=== PATIENT | female | born 1945 | race Caucasian/White ===

== ENCOUNTER 2020-03-17 16:03 | Outpatient (CLI) | payer MEDICARE, SELFPAY ==
[2020-03-17 16:19] LABS: Basophils Percent Auto 0.6 % (0.2-1.2); Eosinophils Percent Auto 0.6 % (0-4.4); Hematocrit 39.2 % (37.0-47.0); Hemoglobin 12.5 g/dL (12.0-15.0); Immature Granulocyte Absolute 0.01 K/mm3 (0.00-0.031); Immature Granulocyte Percent A 0.2 % (0-0.5); Lymphocytes Absolute Auto 0.97 K/mm3 (0.9-3.2); Lymphocytes Percent Auto 20.5 % (18.3-44.2); Mean Corpuscular HGB Conc 31.9 g/dl (32-36); Mean Corpuscular Hemoglobin 28.3 pg (26-34); Mean Corpuscular Volume 88.9 fl (80-100); Monocytes Absolute Auto 0.6 K/mm3 (0.1-0.6); Monocytes Percent Auto 12.7 % (2.6-8.5); Neutrophils Absolute Auto 3.1 K/mm3 (1.3-6.7); Neutrophils Percent Auto 65.4 % (45.5-73.1); Platelet Count Result 255 k/mm3 (150-375); Red Blood Count 4.41 M/mm3 (4.2-5.4); Red Cell Distribution Width 14.3 % (11.5-14.5); White Blood Count 4.7 K/mm3 (4.5-10.0)
[2020-03-17 16:56] LABS: Alanine Aminotransferase 6 U/L (4-35); Albumin Level 4.4 g/dL (3.5-5.1); Alkaline Phosphatase 67 U/L (38-126); Anion Gap 11 mmol/L (8-16); Aspartate Amino Transferase 22 U/L (14-36); Bilirubin,Total 0.4 mg/dL (0.2-1.3); Blood Urea Nitrogen 9 mg/dL (7-17); Calcium 9.7 mg/dL (8.4-10.2); Carbon Dioxide 31 mmol/L (22-30); Chloride 96 mmol/L (98-107); Estimated Glomerular Filt Rate > 60; Glucose 98 mg/dL (65-105); Potassium 3.8 mmol/L (3.4-5.0); Sodium 138 mmol/L (137-145)
== END 2020-03-17 16:04 | disposition home or self-care (01) ==
PROVIDERS: PCP Internal Medicine; Visit Provider Internal Medicine Hematology & Oncology
DX: C09.9 Malignant neoplasm of tonsil, unspecified (principal)
CPT/HCPCS: 36415; 80053; 85025

== ENCOUNTER 2020-03-24 10:38 | Outpatient (CLI) | payer MEDICARE, SELFPAY ==
--- NOTE | ~2020-03-24 | PE_ITS ---
EXAMINATION: PET skull to mid thigh DATE: 03/24/2020 13:37 INDICATION: Tonsillar cancer. TECHNIQUE: Blood glucose level was 85 mg/dL. 9.251 mCi of 18-fluorodeoxyglucose (18-FDG) was administ ered i.v. Low dose computed tomography (CT) images were acquired from the base of the brain to the pr oximal thighs for attenuation correction and anatomic localization. Automated exposure control was em ployed. Dose-length product (DLP) was 256 mGy-cm. Positron emission tomography (PET) images were acqu ired in the same distribution. COMPARISON: Chest CT 12/22/2018 FINDINGS: Head/neck: There is increased activity in the oral cavity without CT correlate, likely physiologic. T here are surgical clips in the neck. Chest: There is scarring at right lung apex without increased activity. There are worsened asymmetric airspace opacities at left lung apex with 2 areas of increased activity at the inferior aspect of th e airspace opacities. A calcified right lower lobe nodule and calcified right hilar lymph nodes are c onsistent with old granulomatous disease. There is a 13 mm nodule in right middle lobe with increased activity, increased from 6 mm on 12/22/18. There is an 11 mm nodule in left lower lobe without increas ed activity, worsened from 12/22/18. There is a 9 mm nodule in left lower lobe without increased activi ty, new from 12/22/18. No pleural effusion. The heart size is normal. There are coronary artery calcifi cations. No pericardial effusion. Abdomen/pelvis/proximal thighs: The liver, gallbladder, spleen, pancreas, and adrenal glands are norm al. There is a 4 mm stone in right kidney. There is a 2 mm stone in left kidney. There is a calcified fibroid in the uterus. There are no dilated loops of bowel. There are no pathologically enlarged lym ph nodes. There is no free intraperitoneal fluid. There is a dense sclerotic lesion in right ilium wi thout increased activity, likely a benign bone island. IMPRESSION: 1. Worsened 13 mm nodule in right lung middle lobe with increased activity, consistent with primary b ronchogenic carcinoma versus metastatic disease. 2. Worsened asymmetric airspace opacities at left lung apex with foci of increased activity, which ma y be inflammation, infection, or metastatic disease. 3. Worsened nodules in left lung lower lobe without increased activity, which may be benign, but low- grade neoplasm is not excluded. Reviewed, dictated and finalized at location B. IMPRESSION: 1. Worsened 13 mm nodule in right lung middle lobe with increased activity, con sistent with primary bronchogenic carcinoma versus metastatic disease. 2. Worsened asymmetric airspace opacities at left lung apex with foci of increa sed activity, which may be inflammation, infection, or metastatic disease. 3. Worsened nodules in left lung lower lobe without increased activity, which m ay be benign, but low-grade neoplasm is not excluded.
[2020-03-24 11:14] LABS: Glucose Point of Care 85 (65-105)
== END 2020-03-24 10:39 | disposition home or self-care (01) ==
PROVIDERS: PCP Internal Medicine; Visit Provider Internal Medicine Hematology & Oncology
DX: C09.9 Malignant neoplasm of tonsil, unspecified (principal)
CPT/HCPCS: 78815; A9552

== ENCOUNTER 2020-04-15 11:57 | Outpatient (CLI) | payer MEDICARE, SELFPAY ==
--- NOTE | 2020-04-15 | ECG_ITS ---
Measurements Intervals [place] Rate: 96 P: MD: 0 QRS: -37 QRSD: 86 T: 55 QT: 361 QTc: 458 Interpretive Statements WANDERING PACEMAKER ATRIAL PREMATURE COMPLEXES LEFT AXIS DEVIATION CANNOT RULE OUT SEPTAL INFARCT, AGE INDETERMINATE ABNORMAL ECG Electronically Signed On 04-15-2020 12:52:27 CDT by Gino Tracy D.O.
== END 2020-04-15 11:58 | disposition home or self-care (01) ==
LOC: ANHCARD 11:58
PROVIDERS: PCP Internal Medicine; Visit Provider Internal Medicine Hematology & Oncology
DX: I49.9 Cardiac arrhythmia, unspecified (principal); R94.31 Abnormal electrocardiogram [ECG] [EKG]
CPT/HCPCS: 93005

== ENCOUNTER 2020-04-27 02:30 | Inpatient (IN) | payer MEDICARE, SELFPAY ==
[2020-04-27] VITALS (19 sets, daily range): BP systolic 105–166; BP diastolic 56–91; PULSE 47–101; RESP 12–22; TEMP 36.4–37; O2SAT 94–100
--- NOTE | 2020-04-27 | ECG_ITS ---
Measurements Intervals [place] Rate: 78 P: 64 PA: 147 QRS: -35 QRSD: 87 T: 42 QT: 413 QTc: 472 Interpretive Statements SINUS RHYTHM ATRIAL PREMATURE COMPLEX LEFT AXIS DEVIATION DELAYED PRECORDIAL R/S TRANSITION BORDERLINE ECG Electronically Signed On 04-29-2020 13:44:16 BIZTALK DEVELOPER by Gino Tracy D.O.
--- NOTE | 2020-04-27 | ECHO_ITS ---
Patient Info Name: Macey Park Age: 74 years : 1945 Gender: Female Ht: 65 in Wt: 110 lbs BSA: 1.50 m2 HR: 80 bpm BP: 105 / 56 mmHg Heart Rhythm: Atrial Fibrillation Technical Quality: Good Exam Date: 04/27/2020 9:23 AM Exam Location: [facility] Patient Status: Inpatient Admit Date: 04/27/2020 Staff Ordering Physician: Kerwin Watson MD Superintendent Greens: Jose Martin Moreno RDCS Attending Provider: Kerwin Watson MD Referring Physician: Walter GOODMAN; Exam Type: CA echo doppler color flow Study Info Indications R55 - Syncope and collapse Complete two-dimensional, color flow and Doppler transthoracic echocardiogram is performed. History/Risk Factors Atrial fibrillation; syncope and collapse, hip fracture. Summary 1. Complete two-dimensional, color flow and Doppler transthoracic echocardiogram is performed. 2. Left ventricular chamber dimension is normal. 3. Left ventricular systolic function is normal, estimated at 55-60%. 4. Left atrial chamber dimension is normal. 5. Right atrial chamber dimension is normal. 6. The aortic valve is trileaflet. 7. There is no aortic valve stenosis. 8. The mitral valve has normal leaflets. 9. There is no mitral valve regurgitation. 10. Normal inferior vena cava with >50% collapse upon inspiration. 11. There is no pericardial effusion. Left Ventricle Left ventricular chamber dimension is normal. Left ventricular systolic function is normal, estimated at 55-60%. There is no increased left ventricular wall thickness. Left ventricular septal wall motion is normal. The left ventricular diastolic function is grade I diastolic dysfunction. Right Ventricle Right ventricular chamber dimension is normal. Right ventricular systolic function is normal. Left Atria Left atrial chamber dimension is normal. Right Atria Right atrial chamber dimension is normal. Aortic Valve The aortic valve is trileaflet. There is no aortic valve sclerosis. There is no aortic valve stenosis. There is no aortic valve regurgitation. Pulmonic Valve The pulmonic valve is normal. There is no pulmonic valve stenosis. There is no pulmonic regurgitation. Mitral Valve The mitral valve has normal leaflets. There is no mitral valve stenosis. There is no mitral valve regurgitation. Tricuspid Valve The tricuspid valve leaflets are normal. There is no significant tricuspid valve stenosis. There is no tricuspid valve regurgitation. Unable to assess pulmonary artery systolic pressure due to poor tricuspid regurgitation jet. . Pericardium/Pleural The pericardium appears normal. There is no pericardial effusion. Inferior Vena Cava Normal inferior vena cava with >50% collapse upon inspiration. Aorta The aortic root size at the sinus of Valsalva is normal. The prox ascending aorta size is normal. Left Ventricular Outflow Tract Name Value Normal LVOT 2D LVOT Diameter 2.0 cm LVOT Doppler LVOT Peak Gradient 4 mmHg LVOT Mean Gradient 2 mmHg LVOT VTI 18 c
--- NOTE | ~2020-04-27 | XR_ITS ---
EXAMINATION: XR chest 1V EXAM DATE: 04/27/2020 03:28 INDICATION: Initial encounter following injury, with pain of the right hip. Right hip fracture. TECHNIQUE: Portable AP frontal chest x-ray was obtained. There is no prior study for comparison. FINDINGS: The lungs are clear. There are no pleural effusions. The cardiomediastinal silhouette is within normal limits. There is no pneumothorax suspected. There are 2 left mid rib fractures, could be subacute or chronic but clinical correlation recommended. IMPRESSION: Left rib fractures most likely subacute or chronic. Reviewed, dictated and finalized at location A. PEELER
--- NOTE | ~2020-04-27 | CT_ITS ---
EXAMINATION: CT hip RT wo con DATE: 04/27/2020 08:12 INDICATION: Right hip pain. TECHNIQUE: Computed tomography (CT) of the right hip was performed without intravenous contrast. Auto mated exposure control and iterative reconstruction technique were employed. The dose-length product was 163.60 mGy-cm. COMPARISON: PET CT 03/24/2020, pelvis and right hip radiographs 04/27/2020, pelvis radiograph 9 FINDINGS: There is a 3 mm stone in right kidney. There is a calcified fibroid uterus. There are benig n bone islands in right ilium that were present on 11/11/2008. There is a subcapital fracture of right femoral neck. The distal fracture fragment demonstrates 25 degrees posterior angulation, impaction, and 25 degrees valgus angulation. There is mild right hip osteoarthritis. IMPRESSION: 1. Subcapital fracture of right femoral neck. 2. Mild right hip osteoarthritis. Reviewed, dictated and finalized at location B. HER
--- NOTE | ~2020-04-27 | XR_ITS ---
EXAMINATION: XR hip RT min 2V DATE: 04/27/2020 16:44 INDICATION: Right hip arthroplasty. Postop. TECHNIQUE: 2 views of right hip were obtained. COMPARISON: Pelvis and right hip radiographs 04/27/2020 FINDINGS: There is a bipolar right hip hemiarthroplasty in near-anatomic alignment. Right hip joint s pace is normal. There is a benign bone island in right ilium. There is gas in the soft tissues, consi stent with recent surgery. IMPRESSION: 1. Bipolar right hip hemiarthroplasty in near-anatomic alignment. Reviewed, dictated and finalized at location B. ICE WRITER
--- NOTE | ~2020-04-27 | XR_ITS ---
EXAMINATION: XR hip RT 2V w AP pelvis EXAM DATE: 04/27/2020 03:28 INDICATION: Initial encounter following injury, with pain of the right hip. TECHNIQUE: 2 right hip projections. Frontal projection pelvis. Comparison is made to prior examinati on from 2008. FINDINGS: Acute closed posttraumatic right hip transcervical femoral neck fracture without displaceme nt. Pelvic ring appears intact. Chronic sclerotic focus overlying right iliac crest again noted. The re is mild symmetric bilateral hip primary osteoarthritis. IMPRESSION: Acute right cervical femoral neck fracture. Reviewed, dictated and finalized at location A. ETEER
--- NOTE | ~2020-04-27 | XR_ITS ---
EXAMINATION: XR surgery orthopedic DATE: 04/27/2020 14:59 INDICATION: Intraoperative evaluation during bipolar type right hip hemiarthroplasty TECHNIQUE: Frontal view of the lower pelvis was obtained. COMPARISON: None. FINDINGS: Intraoperative image during a placement of a bipolar type right hip hemiarthroplasty. The previously fractured right femoral head and neck has been resected and there is been placement of a trial hemiar throplasty component. Alignment appears near-anatomic. No new fractures identified. Large bone island at the right ilium. Portions of the pelvis are obscured by a bolster. Likely Rivera catheter. IMPRESSION: 1. Expected appearance during right hip bipolar type hemiarthroplasty placement. Reviewed, dictated and finalized at location A. OL INSPECTOR IMPRESSION: 1. Expected appearance during right hip bipolar type hemiarthroplasty placement .
--- NOTE | ~2020-04-27 | CT_ITS ---
EXAMINATION: CT brain wo cox branson EXAM DATE: 04/27/2020 03:16 INDICATION: Dizziness, fall. TECHNIQUE: Spiral CT of the head was performed without contrast. Axial, coronal and sagittal images were reviewed. The dose-length product (DLP) for this examination was 756.67 mGy-cm. The exposure w as tailored according to patient size, and iterative reconstruction (ASIR) was used as additional dos e reduction technique. Comparison is made to prior examination from 05/29/2011. FINDINGS: There is no acute intraparenchymal hemorrhage. No evidence of intraparenchymal brain mass lesion. No evidence of acute infarction. Please note that initial head CT has limited sensitivity f or small or acute infarctions. There is mild periventricular and subcortical hypodensity, nonspecific but probably related to small vessel ischemic disease. There is mild prominence of the sulci and v entricles related to cerebral atrophy. There is intracranial carotid arteriosclerosis. There are n o extra-axial collections. There is no mass effect or midline shift. The orbits are unremarkable. Soft tissue is unremarkable. The visualized sinuses and mastoid air cells are well aerated. IMPRESSION: 1. No acute intracranial findings. 2. Chronic age related findings. Reviewed, dictated and finalized at location A. TRIC MOTOR ANALYST
--- NOTE | 2020-04-27 02:50 | PC.NURSE ---
Patient had episode of staring with eyes deviating to the right and snoring respirations-unable to get her to answer questions despite verbal/tactile stimulus. Dr Buck made aware. Episode lasted approx 2-3 min then patient once again speaking normally and aware of where she is. Patient was complaining of nausea just prior to episode
--- NOTE | 2020-04-27 02:57 | ED.GENADULT ---
HPI - General Adult General Chief complaint: Extremity Injury, Lower Stated complaint: R HIP PAIN Time Seen by Provider: 04/27/20 02:31 Source: patient and EMS Mode of arrival: EMS Limitations: no limitations History of Present Illness HPI narrative: THis patient is a 74 year old female with history of lung CA on chemo/radiation who presents for evaluation of right hip pain s/p fall. PAtient states tonight she became dizzy and she fell. SHe states her dizziness is due to an ear issue as this is a chronic issue. She denies hitting her head. She denies headache, dizziness, nausea or vomiting now. She complains of right hip pain that is worse with movement. Related Data Home Medications Medication Instructions Recorded Confirmed famotidine [Acid Classified Advertising Manager 10 mg PO DAILY 04/27/20 04/29/20 (famotidine)] loratadine [Allergy Relief 10 mg PO DAILY 04/27/20 04/27/20 (loratadine)] melatonin 10 mg PO HS PRN 04/27/20 04/27/20 Allergies Allergy/AdvReac Type Severity Reaction Status Date / Time Fish Containing Products Allergy Mild HIVES Verified 04/28/20 17:42 adhesive tape Allergy Unknown skin Verified 04/28/20 17:42 irritation Sulfa (Sulfonamide Allergy Unknown Hives Verified 04/28/20 17:42 Antibiotics) Review of Systems Review of Systems: All systems reviewed & are unremarkable except as noted in HPI and below Constitutional: Constitutional: Denies chills and Denies fever(s) Eyes: Eyes: Denies change in vision ENT: Reports dizziness Cardiovascular: Cardiovascular: Denies chest pain Respiratory: Respiratory: Denies cough and Denies dyspnea Gastrointestinal: Gastrointestinal: Denies abdominal pain, Reports nausea and Denies vomiting Musculoskeletal: Musculoskeletal: Reports arthralgias (right hip) [facility] Past Medical History Medical History (Updated 04/27/20 @ 12:00 by Pradeep Anguiano MD) Bigeminal rhythm Dyslipidemia Hypothyroidism (acquired) Malignant neoplasm of middle lobe, bronchus or lung Mixed action and resting tremor Pain in throat Personal history of nicotine dependence Pigmented skin lesion suspicious for malignant neoplasm Skin neoplasm malignant Syncope and collapse Surgical History Surgical History History of gastrostomy, has currently Family History Family History Father Family history of malignant neoplasm Sibling Family history of malignant neoplasm Social History Social History Smoking packs per day: 2 Smoking cigarettes per day: 40.0 Years smoked: 30 Smoking pack-years: 60.00 Smoking status: Former smoker Tobacco type: cigarettes Second hand tobacco smoke exposure: No Smoking end date: 07/01/13 Alcohol intake: never Substance use: never Gender identity (if verbalized by the patient): Female Spiritual care concerns: No Exam Const: General: no acute distress and alert Orientation/consciousness: patient oriented x3 HENMT: Head: normocephalic and atraumatic Ears: TM abnormal (left) perforated without discharge Face and sinus: face symmetric Throat: posterior oropharynx normal, tonsils normal and uvula midline Eyes: Pupils: Equal, round and reactive pupils present EOM: EOMs intact bilaterally Resp: Effort & Inspection: normal respiratory effort and no retractions Auscultation: clear to auscultation bilaterally Cardio: Rate: regular rate Rhythm: regular rhythm Heart sounds: no murmurs GI: GI Palp: Yes Soft to palpation, No Tenderness to palpation present (GI), No Guarding due to palpation present (GI) and No Rigid due to palpation Skin: General skin exam: normal color Rashes: no rashes Neuro: General: patient oriented x3 and moves all extremities Course Reevaluation(s) Reevaluation #1: Patient has been made aware of right hip fracture. Date: 04/27/20 Time
[2020-04-27 03:05] LABS: Basophils Percent Auto 0.2 % (0.2-1.2); Hematocrit 37.1 % (37.0-47.0); Hemoglobin 12.2 g/dL (12.0-15.0); Immature Granulocyte Absolute 0.02 K/mm3 (0.00-0.031); Immature Granulocyte Percent A 0.5 % (0-0.5); Lymphocytes Absolute Auto 0.29 K/mm3 (0.9-3.2); Lymphocytes Percent Auto 7.1 % (18.3-44.2); Mean Corpuscular HGB Conc 32.9 g/dl (32-36); Mean Corpuscular Hemoglobin 28.6 pg (26-34); Mean Corpuscular Volume 87.1 fl (80-100); Mean Platelet Volume 10.7 fl (7.4-10.4); Monocytes Absolute Auto 0.4 K/mm3 (0.1-0.6); Monocytes Percent Auto 9.6 % (2.6-8.5); Neutrophils Absolute Auto 3.4 K/mm3 (1.3-6.7); Neutrophils Percent Auto 82.6 % (45.5-73.1); Platelet Count Result 188 k/mm3 (150-375); Red Blood Count 4.26 M/mm3 (4.2-5.4); Red Cell Distribution Width 14.3 % (11.5-14.5); White Blood Count 4.1 K/mm3 (4.5-10.0)
[2020-04-27 03:15] LABS: INR 0.9; Prothrombin Time 12.5 Seconds (11.1-14.7)
[2020-04-27 03:16] LABS: Partial Thromboplastin Time 28.1 SECONDS (22.3-36.8)
[2020-04-27 03:21] LABS: Alanine Aminotransferase 10 U/L (4-35); Albumin Level 4.1 g/dL (3.5-5.1); Alkaline Phosphatase 62 U/L (38-126); Anion Gap 7 mmol/L (8-16); Aspartate Amino Transferase 34 U/L (14-36); Bilirubin,Total 0.3 mg/dL (0.2-1.3); Blood Urea Nitrogen 12 mg/dL (7-17); Carbon Dioxide 32 mmol/L (22-30); Chloride 92 mmol/L (98-107); Estimated CRCL calculation 56 ml/min; Estimated Glomerular Filt Rate > 60; Glucose 156 mg/dL (65-105); Potassium 3.3 mmol/L (3.4-5.0); Sodium 131 mmol/L (137-145)
[2020-04-27] MEDS: ONDANSETRON INJ 4 MG/2 ML VIAL IV PUSH ×2 (03:26→17:06)
--- NOTE | 2020-04-27 04:28 | PM.IMHP ---
H&P: HPI History of Present Illness Date/Time: 04/27/20 04:28 Chief complaint: closed right femoral neck fracture Narrative: This is a pleasant 74 year old female with known recurrent lung cancer who presented to the hospital today after suffering a syncopal event at home. The patient is known to have had throat cancer diagnosed in 2013 and underwent both surgery and radiation therapy for same. She is currently undergoing #5 radiation treatments at [facility] for right sided lung cancer. Yesterday she underwent her first radiation treatment. Last night the patient got dizzy after getting up and starting to walk towards the kitchen. She woke up on the floor and is not sure how long she was unconscious for. She isn't sure if she suffered any head trauma. She denies any shortness of breath or chest pain prior to passing out and her only symptoms was dizziness. The patient crawled to the phone and called EMS. On arrival to the hospital the patient was found to have a closed right hip fracture. Ortho was consulted by ER provider. She denies any other symptoms at this time although she does tell me that she saw her PCP last week and was found to be in an irregular heart rhythm although she can't tell me what that rhythm was. She denies any recent palpitations or chest pain. Review of Systems Review of Systems: All systems reviewed & are unremarkable except as noted in HPI and below PMFSH Past Medical History Medical History Dyslipidemia Pain in throat Pigmented skin lesion suspicious for malignant neoplasm Skin neoplasm malignant Surgical History Surgical History History of gastrostomy, has currently Family History Family History Father Family history of malignant neoplasm Sibling Family history of malignant neoplasm Social History Social History Smoking packs per day: 2 Smoking cigarettes per day: 40.0 Years smoked: 30 Smoking pack-years: 60.00 Smoking status: Former smoker Tobacco type: cigarettes Second hand tobacco smoke exposure: No Smoking end date: 07/01/13 Alcohol intake: never Substance use: never Gender identity (if verbalized by the patient): Female Sexual Orientation (if Verbalized by the Patient): Straight or Heterosexual Spiritual care concerns: No Meds Home Medications and Allergies Home Medications Medication Instructions Recorded Confirmed Type carbidopa ER 25 mg-levodopa 100 mg 1 tablet PO BID #180 tablet 12/23/19 04/08/20 Rx tablet,extended release atorvastatin 20 mg tablet 20 mg PO DAILY #90 tablet 03/16/20 04/08/20 Rx levothyroxine 50 mcg tablet 50 mcg PO DAILY #90 tablet 03/16/20 04/08/20 Rx gabapentin 100 mg capsule See Rx Instructions .ROUTE 04/18/20 Rx .COMPLEX #270 cap dexamethasone 4 mg PO DIRECTED #5 tablet 04/26/20 Rx Allergies Allergy/AdvReac Type Severity Reaction Status Date / Time Fish Containing Products Allergy Mild HIVES Verified 04/27/20 05:27 adhesive tape Allergy Unknown skin Verified 04/27/20 05:27 irritation Sulfa (Sulfonamide Allergy Unknown Hives Verified 04/27/20 05:27 Antibiotics) Vital Signs Vital Signs - 24 hr 04/27/20 02:27 04/27/20 03:29 Temperature 37.0 C Pulse Rate 101 H 82 Respiratory Rate 22 H 17 Blood Pressure 158/75 H 118/76 Pulse Oximetry 96 97 Exam Const: General: cooperative, alert and awake Nutritional Appearance: thin and underweight Orientation/consciousness: patient oriented x3 HENMT: Head: normal to inspection General nose exam: Normal external nose present Face and sinus: normal facial exam Mouth: Yes Normal oral and palatal mucosa present and Yes oropharynx normal Eyes: Pupils: Equal, round and reactive pupils present EOM: EOMs intact bilaterally Neck: Ne
--- NOTE | 2020-04-27 05:03 | ADMGEN ---
This patient, Macey Park, was admitted to [facility] Surg Room 303-01. Patient/family oriented to hospital policies and general routines including ID bracelet, bed and alarms, visiting hours, pain management, procedures, bathroom and other care routines, personal items, smoking policy, room service/diet, and visiting hours. Information on how to activate the Rapid Response Team has been discussed. Patient/Family are encouraged to report perceived risks to care and to ask questions if they do not understand what they are told or what they should do.
--- NOTE | 2020-04-27 05:27 | ECG_ITS ---
Measurements Intervals [place] Rate: 94 P: ME: 0 QRS: -32 QRSD: 95 T: 60 QT: 385 QTc: 483 Interpretive Statements SINUS RHYTHM SUPRAVENTRICULAR BIGEMINY LEFT AXIS DEVIATION INCOMPLETE RIGHT BUNDLE BRANCH BLOCK CANNOT RULE OUT SEPTAL INFARCT, AGE INDETERMINATE BASELINE ARTIFACT- I, III, AVL ABNORMAL ECG Electronically Signed On 04-27-2020 8:47:20 TWISTER HAND by Gino Tracy D.O.
[2020-04-27] MEDS: SODIUM CHLORIDE 0.9% IV 1,000 ML 125 ML IV CONT (05:52)
[2020-04-27 06:33] LABS: Magnesium 1.9 mg/dL (1.6-2.3)
[2020-04-27] MEDS: MORPHINE SULFATE (*CRX) 4 MG/ML INJ 2 MG IV PUSH (07:32)
[2020-04-27] MEDS: LEVOTHYROXINE SODIUM INJ 100 MCG/5 ML VIAL 25 MCG IV PUSH (08:46)
--- NOTE | 2020-04-27 08:56 | PM.CNCAR ---
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 She has bigeminal PACs on tele, Doubt that has contributed to syncope however will continue to monitor on tele for any bradyarrhythmia or heart block. Will also check 2D echocardiogram to rule out structural heart disease She sustained hip fracture from the syncope/fall. Will follow 2D echo. if that grossly normal then she should have acceptable risk for surgery if needed. (2) Bigeminal rhythm: Code(s): I49.8 - Other specified cardiac arrhythmias Status: Acute Assessment and Plan: as above. 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 Around 10 pm she got up from chair, felt dizzy and lost her consciousness. She is not sure how long she was down for. She managed to crawl and called for help. She felt febrile and clammy after she woke up. She was found to have hip fracture. Her EKG shows normal sinus rhythm with frequent PACs in bigeminy. She states that few weeks ago she was told she had irregular heart rhythm and had EKG done (noted on her records on 04/15, also showed sinus rhythm with bigeminal PACs She had on and off palpitations for years, that has not changed recently. She denies chest pain, dyspnea, nausea/vomiting. Never had any heart disease or cardiac work up in the past except for EKGs Her K is 3.3, otherwise labs are unremarkable. TSH was normal She quit smoking in 2013. She states it has been tough year, lost her and found to have recurrence of cancer Father on heart attack. Mother while asleep of unclear reason. Reason For Visit: closed right femoral neck fracture Review of Systems Review of Systems: All systems reviewed & are unremarkable except as noted in HPI and below Constitutional: Constitutional: Denies fatigue and Denies headache(s) Eyes: Eyes: Denies blurry vision ENT: Reports Normal hearing present and Denies headache(s) Cardiovascular: Cardiovascular: Denies chest pain, Denies diaphoresis, Denies pedal edema, Denies leg edema, Denies lightheadedness, Denies palpitations and Denies dyspnea Respiratory: Respiratory: Denies cough and Denies dyspnea Gastrointestinal: Gastrointestinal: Denies abdominal pain Musculoskeletal: Musculoskeletal: Denies back pain Neurologic: Reports Normal hearing present and Denies headache(s) Psychiatric: Psychiatric: Denies anxiety Endocrine: Endocrine: Denies fatigue and Denies palpitations [facility] Past Medical History Medical History (Updated 04/27/20 @ 10:22 by Lucy Womack MD) Dyslipidemia Pain in throat Pigmented skin lesion suspicious for malignant neoplasm Skin neoplasm malignant Surgical History Surgical History History of gastrostomy, has currently Family History Family History Father Family history of malignant neoplasm Sibling Family history of malignant neoplasm Social History Social History Smoking packs per day: 2 Smoking cigarettes per day: 40.0 Years smoked: 30 Smoking pack-years: 60.00 Smoking stat
[2020-04-27 11:33] LABS: Potassium 3.7 mmol/L (3.4-5.0)
--- NOTE | 2020-04-27 11:58 | WPDANESEPPF ---
Anes - Initial Pre Proc Eval Procedure: Operation Date: 04/27/20 13:30 Proposed Procedures p Right Bipolar Hip Replacement - Willam Castellanos MD cardiology consult: She has bigeminal PACs on tele, Doubt that has contributed to syncope however will continue to monitor on tele for any bradyarrhythmia or heart block. Will also check 2D echocardiogram to rule out structural heart disease She sustained hip fracture from the syncope/fall. Will follow 2D echo. if that grossly normal then she should have acceptable risk for surgery if needed. Date/Time: 04/27/20 11:58 Surgeon: Kerwin Watson MD Pre Op Diagnosis: closed right femoral neck fracture Patient Data Age: 74 Gender: F Height: 1.65 m Weight: 49.9 kg Last Vital Signs Temp 36.7 C 04/27/20 05:58 Pulse 81 04/27/20 08:00 Resp 16 04/27/20 05:58 BP 105/56 L 04/27/20 05:58 Pulse Ox 94 04/27/20 05:58 Allergies Allergy/AdvReac Type Severity Reaction Status Date / Time Fish Containing Products Allergy Mild HIVES Verified 04/27/20 05:27 adhesive tape Allergy Unknown skin Verified 04/27/20 05:27 irritation Sulfa (Sulfonamide Allergy Unknown Hives Verified 04/27/20 05:27 Antibiotics) Home Medications Medication Instructions Recorded Confirmed Type carbidopa ER 25 mg-levodopa 100 mg 1 tablet PO BID #180 tablet 12/23/19 04/27/20 Rx tablet,extended release atorvastatin 20 mg tablet 20 mg PO DAILY #90 tablet 03/16/20 04/27/20 Rx levothyroxine 50 mcg tablet 50 mcg PO DAILY #90 tablet 03/16/20 04/27/20 Rx gabapentin 100 mg capsule See Rx Instructions .ROUTE 04/18/20 04/27/20 Rx .COMPLEX #270 cap famotidine [Acid Code Official 10 mg PO DAILY 04/27/20 History (famotidine)] loratadine [Allergy Relief 10 mg PO DAILY 04/27/20 04/27/20 History (loratadine)] melatonin 10 mg PO HS PRN 04/27/20 04/27/20 History Laboratory Tests 04/27/20 04/27/20 04/27/20 02:48 02:48 02:48 WBC 4.1 K/mm3 L K/mm3 (4.5-10.0) RBC 4.26 M/mm3 M/mm3 (4.2-5.4) Hgb 12.2 g/dL g/dL (12.0-15.0) Hct 37.1 % % (37.0-47.0) MCV 87.1 fl fl (80-100) MCH 28.6 pg pg (26-34) MCHC 32.9 g/dl g/dl (32-36) RDW 14.3 % % (11.5-14.5) Plt Count 188 k/mm3 k/mm3 (150-375) MPV 10.7 fl H fl (7.4-10.4) Immature Gran % (Auto) 0.5 % % (0-0.5) Neut % (Auto) 82.6 % H % (45.5-73.1) Lymph % (Auto) 7.1 % L % (18.3-44.2) [place] % (Auto) 9.6 % H % (2.6-8.5) Eos % (Auto) 0.0 % % (0-4.4) Baso % (Auto) 0.2 % % (0.2-1.2) Lymph # (Auto) 0.29 K/mm3 L K/mm3 (0.9-3.2) [place] # (Auto) 0.4 K/mm3 K/mm3 (0.1-0.6) Eos # (Auto) 0.0 K/mm3 K/mm3 (0-0.3) Baso # (Auto) 0.0 K/mm3 K/mm3 (0.0-0.1) Abs Immat Gran (auto) 0.02 K/mm3 K/mm3 (0.00-0.031) Absolute Neuts (auto) 3.4 K/mm3 K/mm3 (1.3-6.7) Absolute Nucleated RBC 0.0 K/mm3 K/mm3 (0.0-0.012) Nucleated RBC % 0.0 % % (0.0-0.2) PT 12.5 Seconds Seconds (11.1-14.7) INR 0.9 APTT 28.1 SECONDS SECONDS (22.3-36.8) Sodium 131 mmol/L L mmol/L (137-145) Potassium 3.3 mmol/L L mmol/L (3.4-5.0) Chloride 92 mmol/L L mmol/L (98-107) Carbon Dioxide 32 mmol/L H mmol/L (22-30) Anion Gap 7 mmol/L L mmol/L (8-16) BUN 12 mg/dL mg/dL (7-17) Creatinine 0.60 mg/dL L mg/dL (0.7-1.0) Estim Creat Clear Calc 56 ml/min ml/min Estimated GFR > 60 (59 - ) Glucose 156 mg/dL H mg/dL (65-105) Calcium 9.0 mg/dL mg/dL (8.4-10.2) Magnesium Total Bilirubin 0.3 mg/dL mg/dL (0.2-1.3) AST 34 U/L U/L (14-36) ALT 10 U/L U/L (4-35) Alkaline Phosphatase 62 U/L U/L (38-126) Total Protein 7.0 g/dL g/dL (
--- NOTE | 2020-04-27 12:14 | PM.CNOR ---
Assessment and Plan Additional Plan Patient has a mildly impacted and comminuted right femoral neck fracture. Again this treatment option for this is a cemented bipolar hemiarthroplasty. This will allow be full weight-bearing immediately which should improve her recovery on a quicker basis. Surgical procedure as well as the risks complications were discussed. Certainly she is a little increased risk complications due to her malignant tumor in her lung. She will be anticoagulation for 6 weeks postop to increased risk of DVT because of the cancer. She has been evaluated cleared for surgery. Will plan proceeding today. <BERE Jerez - Last Filed: 04/27/20 12:25> History of Present Illness HPI Consult date: 04/27/20 <BERE Jerez - Last Filed: 04/27/20 12:25> 04/27/20 <Willam Castellanos MD - Last Filed: 04/27/20 16:18> Chief complaint: closed right femoral neck fracture <BERE Jerez - Last Filed: 04/27/20 12:25> [facility] Past Medical History Medical History: Medical History (Updated 04/27/20 @ 12:00 by Pradeep Anguiano MD) Bigeminal rhythm Dyslipidemia Hypothyroidism (acquired) Malignant neoplasm of middle lobe, bronchus or lung Mixed action and resting tremor Pain in throat Personal history of nicotine dependence Pigmented skin lesion suspicious for malignant neoplasm Skin neoplasm malignant Syncope and collapse <BERE Jerez - Last Filed: 04/27/20 12:25> Surgical History Surgical History: Surgical History History of gastrostomy, has currently <BERE Jerez - Last Filed: 04/27/20 12:25> Family History Family History: Family History Father Family history of malignant neoplasm Sibling Family history of malignant neoplasm <BERE Jerez - Last Filed: 04/27/20 12:25> Social History Social History: Social History Smoking packs per day: 2 Smoking cigarettes per day: 40.0 Years smoked: 30 Smoking pack-years: 60.00 Smoking status: Former smoker Tobacco type: cigarettes Second hand tobacco smoke exposure: No Smoking end date: 07/01/13 Alcohol intake: never Substance use: never Gender identity (if verbalized by the patient): Female Sexual Orientation (if Verbalized by the Patient): Straight or Heterosexual Spiritual care concerns: No <BERE Jerez - Last Filed: 04/27/20 12:25> Meds Home Medications and Allergies Home medications: Home Medications Medication Instructions Recorded Confirmed Type carbidopa ER 25 mg-levodopa 100 mg 1 tablet PO BID #180 tablet 12/23/19 04/27/20 Rx tablet,extended release atorvastatin 20 mg tablet 20 mg PO DAILY #90 tablet 03/16/20 04/27/20 Rx levothyroxine 50 mcg tablet 50 mcg PO DAILY #90 tablet 03/16/20 04/27/20 Rx gabapentin 100 mg capsule See Rx Instructions .ROUTE 04/18/20 04/27/20 Rx .COMPLEX #270 cap famotidine [Acid [employer] 10 mg PO DAILY 04/27/20 History (famotidine)] loratadine [Allergy Relief 10 mg PO DAILY 04/27/20 04/27/20 History (loratadine)] melatonin 10 mg PO HS PRN 04/27/20 04/27/20 History <BERE Jerez - Last Filed: 04/27/20 12:25> Allergies/Adverse reactions: Allergies Allergy/AdvReac Type Severity Reaction Status Date / Time Fish Containing Products Allergy Mild HIVES Verified 04/27/20 13:12 adhesive tape Allergy Unknown skin Verified 04/27/20 13:12 irritation Sulfa (Sulfonamide Allergy Unknown Hives Verified 04/27/20 13:12 Antibiotics) <BERE Jerez - Last Filed: 04/27/20 12:25> Vital Signs Vital Signs - 24 hr 04/27/20 02:27 04/27/20 03:29 04/27/20 05:58 Temperature 37.0 C 36.7 C Pulse Rate 101 H 82 82 Respiratory Rate 22 H 17 16 Blood Pressure 158/75 H 118/76 105/56 L Pulse Oximetry 96 97 94 04/27/20 08:00 Tempera
--- NOTE | 2020-04-27 12:35 | PM.PNCARD ---
Subjective Date/time seen: 04/27/20 12:35 Echo Was in our office today showed normal left ventricular systolic function, she has no cardiac contraindication for surgery, please call for any questions regarding her care Objective Data Vital Signs Vital Signs: Vital Signs - 24 hr 04/27/20 02:27 04/27/20 03:29 04/27/20 05:58 Temperature 37.0 C 36.7 C Pulse Rate 101 H 82 82 Respiratory Rate 22 H 17 16 Blood Pressure 158/75 H 118/76 105/56 L Pulse Oximetry 96 97 94 04/27/20 08:00 Temperature Pulse Rate 81 Respiratory Rate Blood Pressure Pulse Oximetry Intake/Output Intake/Output: Intake & Output 04/24/20 04/25/20 04/26/20 04/27/20 23:59 23:59 23:59 23:59 Intake Total 65 Balance 65 Meds/Results Medications: Active Medications Generic Name Dose Route Start Last Admin Trade Name Freq PRN Reason Stop Dose Admin Fentanyl Citrate 25 mcg 04/27/20 11:58 Fentanyl Citrate Inj (*Crx) 100 Mcg/2 Ml Vial IV PUSH Q2M PRN Pain Acetaminophen 650 mg in 65 mls @ 260 mls/hr 04/27/20 03:59 Ofirmev 650 Mg Ivpb IVPB 04/28/20 04:00 Q6H PRN Mild Pain (1-3) or Fever Sodium Chloride 1,000 mls @ 125 mls/hr 04/27/20 04:00 04/27/20 05:52 Normal Saline Iv IV CONT 125 mls/hr .Q8H EMILIE Administration Lactated Ringer's 1,000 mls @ 30 mls/hr 04/27/20 12:00 Lr - Lactated Ringers Iv IV CONT .Q24H EMILIE Lactated Ringer's 1,000 mls @ 30 mls/hr 04/27/20 12:00 Lr - Lactated Ringers Iv IV CONT .Q24H EMILIE Vancomycin HCl 750 mg in 250 mls @ 250 mls/hr 04/27/20 12:30 Vancomycin 750 Mg/D5w 250 Ml IVPB 04/27/20 13:29 ONCE ONE Levothyroxine Sodium 25 mcg 04/27/20 06:30 04/27/20 08:46 Levothyroxine Sodium Inj 100 Mcg/5 Ml Vial IV PUSH 25 mcg DAILY@0630 EMILIE Administration Morphine Sulfate 2 mg 04/27/20 03:59 04/27/20 07:32 Morphine Sulfate (*Crx) 4 Mg/Ml Inj IV PUSH 2 mg Q2H PRN Administration Pain Rated 7-10 Ondansetron HCl 4 mg 04/27/20 03:59 Ondansetron Inj 4 Mg/2 Ml Vial IV PUSH Q4H PRN Nausea Ondansetron HCl 4 mg 04/27/20 11:58 Ondansetron Inj 4 Mg/2 Ml Vial IV PUSH ONCE PRN Nausea Radiology Results: ITS Impressions Head CT 04/27/20 07:08 IMPRESSION: 1. No acute intracranial findings. 2. Chronic age related findings. Hip/Pelvis X-Ray 04/27/20 07:22 IMPRESSION: Acute right cervical femoral neck fracture. Chest X-Ray 04/27/20 07:25 IMPRESSION: Left rib fractures most likely subacute or chronic. Hip CT 04/27/20 08:13 IMPRESSION: 1. Subcapital fracture of right femoral neck. 2. Mild right hip osteoarthritis. Labs Labs: Laboratory Results - last 24 hr 04/27/20 04/27/20 04/27/20 02:48 02:48 02:48 WBC 4.1 L RBC 4.26 Hgb 12.2 Hct 37.1 MCV 87.1 MCH 28.6 MCHC 32.9 RDW 14.3 Plt Count 188 MPV 10.7 H Immature Gran % (Auto) 0.5 Neut % (Auto) 82.6 H Lymph % (Auto) 7.1 L Rains % (Auto) 9.6 H Eos % (Auto) 0.0 Baso % (Auto) 0.2 Lymph # (Auto) 0.29 L Rains # (Auto) 0.4 Eos # (Auto) 0.0 Baso # (Auto) 0.0 Abs Immat Gran (auto) 0.02 Absolute Neuts (auto) 3.4 Absolute Nucleated RBC 0.0 Nucleated RBC % 0.0 PT 12.5 INR 0.9 APTT 28.1 Sodium 131 L Potassium 3.3 L Chloride 92 L Carbon Dioxide 32 H Anion Gap 7 L BUN 12 Creatinine 0.60 L Estim Creat Clear Calc 56 Estimated GFR > 60 Glucose 156 H Calcium 9.0 Magnesium Total Bilirubin 0.3 AST 34 ALT 10 Alkaline Phosphatase 62 Total Protein 7.0 Albumin 4.1 TSH (Reflex) 04/27/20 04/27/20 04/27/20 05:42 05:42 11:09 WBC RBC Hgb Hct MCV MCH MCHC RDW Plt Count MPV Immature Gran % (Auto) Neut % (Auto) Lymph % (Auto) Rains % (Auto) Eos % (Auto) Baso % (Auto) Lymph # (Auto) Rains # (Auto) Eos
[2020-04-27] MEDS: LACTATED RINGERS 1,000 ML 30 ML IV CONT ×2 (13:02→16:28)
--- NOTE | 2020-04-27 13:26 | WPDHPUPDATE1 ---
History and Physical Update Update Date/Time: 04/27/20 13:26 History and Physical has been reviewed, including an updated exam of the patient. There are NO changes in the patient's condition. Risks, benefits, and alternatives have been discussed and questions answered. Patient agrees to proceed with procedure. Options and risks of surgery discused . Left ribs aree nontender. States occurred when blew nose hard in August.
[2020-04-27] MEDS: ceFAZolin 2 GM/D5W 50 ML 2 GM/50 ML BAG IVPB (13:41)
--- NOTE | 2020-04-27 14:05 | PM.IMPN ---
Progress Note: A&P Assessment and Plan (1) Closed fracture of neck of right femur: Qualifiers: Encounter type: initial encounter Qualified Code(s): S72.001A - Fracture of unspecified part of neck of right femur, initial encounter for closed fracture Code(s): S72.001A - Fracture of unspecified part of neck of right femur, initial encounter for closed fracture Status: Acute Assessment and Plan: admit to med-surg, NPO, urinary catheter, pain control as needed. Ortho has been consulted 04/27/20 14:05Patient is 74-year-old female with history of throat cancer and was treated in 1999 patient also has developed lung cancer and has been going through recent therapy at [facility], last night patient was walking to her kitchen and developed dizziness and patient felt dizzy and landed on the floor, not sure if she hit her head, not sure how long she was on the floor however patient was able to crawl and reach her and call EMS and patient was brought emergency department further evaluate, patient had a CT scan of the head which was negative for any acute injury to further evaluate patient had a CT of the head showed Subcapital fracture of right femoral neck. upon arrival patient tachycardia and was a concern the patient may been AFib, patient was seen by visual basic .net developer and suspect is started tachycardia and not in AFib, also the visual basic .net developer has cleared the patient for surgery, patient was seen by orthopedic surgeon and plan to surgical repair of the right hip later this afternoon. currently patient states feeling much better denies any chest pain shortness of breath palpitation fever or chills. (2) Syncope and collapse: Code(s): R55 - Syncope and collapse Status: Acute Assessment and Plan: likely reactive syncope. telemetry. IV fluids, TSH w reflex T4, Echocardiogram (3) Hypokalemia: Code(s): E87.6 - Hypokalemia Status: Acute Assessment and Plan: Jeniffer fuentes. Monitor serum potassium. (4) Malignant neoplasm of middle lobe, bronchus or lung: Code(s): C34.2 - Malignant neoplasm of middle lobe, bronchus or lung Status: Chronic Assessment and Plan: She received her first dose of radiation therapy yesterday. Continue Oncology recommendations. (5) Dyslipidemia: Code(s): E78.5 - Hyperlipidemia, unspecified Status: Chronic Assessment and Plan: resume atorvastatin when the patient is eating again. (6) Mixed action and resting tremor: Code(s): R25.9 - Unspecified abnormal involuntary movements Status: Chronic Assessment and Plan: Resume Sinemet when possible. (7) Hypothyroidism (acquired): Code(s): E03.9 - Hypothyroidism, unspecified Status: Chronic Assessment and Plan: IV levothyroxine ordered. Subjective Date/time seen: 04/27/20 14:05Patient is 74-year-old female with history of throat cancer and was treated in 1999 patient also has developed lung cancer and has been going through recent therapy at [facility], last night patient was walking to her kitchen and developed dizziness and patient felt dizzy and landed on the floor, not sure if she hit her head, not sure how long she was on the floor however patient was able to crawl and reach her and call EMS and patient was brought emergency department further evaluate, patient had a CT scan of the head which was negative for any acute injury to further evaluate patient had a CT of the head showed Subcapital fracture of right femoral neck. upon arrival patient tachycardia and was a concern the patient may been AFib, patient was seen by visual basic .net developer and suspect is started tachycardia and not in AFib, also the visual basic .net developer has cleared the patient for surgery, patient was seen by orthopedic surgeon and plan to surgical repair of the right hip later this afternoon. currently patient states feeling much better denies any chest pain shortness of breath palpitation fever
[2020-04-27] MEDS: TRANEXAMIC ACID 1,000MG/ISO100 1,000 MG/100 ML BAG 200 MG IVPB (14:06)
[2020-04-27] MEDS: GENTAMICIN BONE CEMENT REFOBACIN 1 EACH TOPICAL (14:17)
[2020-04-27] MEDS: KETOROLAC 30 MG/ML VIAL (*BKC) IV PUSH (15:42)
[2020-04-27] MEDS: ceFAZolin SODIUM 1 GM VIAL IV PUSH (15:42)
--- NOTE | 2020-04-27 15:59 | SUR.OPER ---
knee high teds sent with patient to place after induction due to discomfort. Not to apply as per Dr Castellanos prior to surgery to leave off.
--- NOTE | 2020-04-27 16:11 | PM.PROC ---
Procedure Note - Detailed Date of procedure: 04/27/20 Pre-op diagnosis: closed right femoral neck fracture Post-op diagnosis: same Procedure performed: Cemented bipolar hemiarthroplasty right hip Description of procedure: Patient brought to the operating room and general anesthesia was administered. She had her right hip area scrubbed with a chlorhexidine cloth. She was transferred to the operating table in placed in lateral decubitus position the right hip prepped draped usual fashion. Anesthesia position the arm and a bump was placed under the axilla. She received 2 g of Ancef weight based vancomycin preoperatively and 1 g of tranexamic acid. A 6 in longitudinal incision was made centered over the greater trochanter and the fascia dragan was incised longitudinally. The anterior 40% of the gluteus medius and gluteus minimus were elevated off the greater trochanter. Capsule was incised superiorly. The labrum was preserved. Capsule released off the anterior femur and provisional femoral neck osteotomy was performed. The femoral head was removed. It measures 45 point 3 mm. The 46 mm trial fit nicely. The femur was broached up to a size 10 reduced profile broach. We trialed with the minus 6 which was tight. We countersunk 4 mm calcar planed and trialed with a -3 which was tight. We countersunk another 4 mm and calcar planed and took an intraoperative x-ray with the -[address] that had nice stability and excellent range of motion and normal amount of soft tissue tension on Shuck. The x-rays showed that we had matched our preoperative plan. A cement restrictor was placed in the canal. The proximal femur was thoroughly irrigated with the bottle brush and treated with an epinephrine-soaked sponge and dried and we cemented the size 7 Biomet cemented stem with 10 mm centralizer using 2 batches of Biomet cement 1 containing the gentamicin powder. Cement was lightly pressurized and the stem inserted without difficulty. Cement was allowed to harden excess cement was removed we trialed with a -3 and this was again appropriate. The -3 was assembled onto the 46 mm bipolar head and the assembly impacted onto the clean and dried trunnion and the hip again irrigated with antibiotic solution reduced range of motion and stability reconfirmed. Capsule was repaired with 2. Ethibond the abductor was reattached with 5. Ethibond and 2. Ethibond through bone. The fascia dragan closed with interrupted 2. Vicryl as and 1. You directional pati running strata Fix sutures skin closed in layers with 2 O subcutaneous Vicryl and glue EBL was turned cc. Third g Ancef given at time of wound closure. Local anesthetic cocktail was injected at time of closure as well. There were no occult known complications. At time of surgery of found the cancellous bone to be extremely osteoporotic. Much of the intramedullary metaphyseal preparation of the proximal femur was carried out using a plastic suction tip as the bone was that soft. Anesthesia: GETA Surgeon: Willam Castellanos MD Heel Nail Rasper: Ellie Estimated blood loss (mL): 200 Drains: No Packing: No Pathology: yes (The femoral head and the neck cut were sent to pathology. History of metastatic tonsillar squamous carcinoma) Complications: No immediate complications Condition: stable Disposition: PACU
--- NOTE | 2020-04-27 16:58 | SUR.PHASEI ---
02 removed at 1655.
[2020-04-27] MEDS: diphenhydrAMINE HCl INJ 50 MG/ML VIAL 12.5 MG IV PUSH (17:23)
[2020-04-27] MEDS: SODIUM CHLORIDE 0.9% IV 1,000 ML 80 ML IV CONT (18:53)
[2020-04-28] VITALS (8 sets, daily range): BP systolic 123–144; BP diastolic 69–77; PULSE 62–106; RESP 16; TEMP 36.1–36.7; O2SAT 96–100; BMI 18.3
[2020-04-28 06:23] LABS: Hematocrit 31.7 % (37.0-47.0); Hemoglobin 10.6 g/dL (12.0-15.0); Immature Granulocyte Absolute 0.01 K/mm3 (0.00-0.031); Immature Granulocyte Percent A 0.2 % (0-0.5); Lymphocytes Percent Auto 8.5 % (18.3-44.2); Mean Corpuscular HGB Conc 33.4 g/dl (32-36); Mean Corpuscular Volume 86.6 fl (80-100); Mean Platelet Volume 11.3 fl (7.4-10.4); Monocytes Absolute Auto 0.4 K/mm3 (0.1-0.6); Monocytes Percent Auto 8.7 % (2.6-8.5); Neutrophils Absolute Auto 3.9 K/mm3 (1.3-6.7); Neutrophils Percent Auto 82.6 % (45.5-73.1); Platelet Count Result 162 k/mm3 (150-375); Red Blood Count 3.66 M/mm3 (4.2-5.4); Red Cell Distribution Width 14.2 % (11.5-14.5); White Blood Count 4.7 K/mm3 (4.5-10.0)
[2020-04-28] MEDS: LEVOTHYROXINE SODIUM INJ 100 MCG/5 ML VIAL 25 MCG IV PUSH (06:31)
[2020-04-28 06:39] LABS: Anion Gap 4 mmol/L (8-16); Blood Urea Nitrogen 7 mg/dL (7-17); Calcium 8.2 mg/dL (8.4-10.2); Carbon Dioxide 28 mmol/L (22-30); Chloride 100 mmol/L (98-107); Estimated CRCL calculation 66 ml/min; Estimated Glomerular Filt Rate > 60; Glucose 119 mg/dL (65-105); Potassium 3.6 mmol/L (3.4-5.0); Sodium 132 mmol/L (137-145)
[2020-04-28] MEDS: ONDANSETRON INJ 4 MG/2 ML VIAL IV PUSH (06:54)
--- NOTE | 2020-04-28 07:20 | PM.PNORT ---
Progress Note: A&P Additional Plan Patient is postoperative day 1 following cemented right bipolar hemiarthroplasty for femoral neck fracture. He is afebrile with stable vital signs. Her oxygen saturation has been 98-100%. Her hemoglobin is 10.6 indicating mild acute blood loss anemia. Her sodium is still mildly low at 132. She is received normal saline as IV fluids overnight. Her creatinine is normal at 0.5 and actually below normal. Creatinine clearance 66 mL. We will check a 25 hydroxy vitamin D tomorrow. On exam this morning she is sitting up she is alert and oriented. She states she feels a little bit achy all over but has no pain. She was up to the chair last night and had nausea after sitting for 30-40 minutes. She does have some problems with nausea following anesthesia she states. This morning she feels a little bit nauseated she is alert and oriented and cheerful overall. She has no leg swelling. She does have neuropathy and there is no change in that she wiggles her toes and ankles up and down without difficulty. There is no swelling in the leg or hip. Eliquis will be started this morning for DVT prophylaxis and we anticipate 6 weeks on that. She is weight-bearing as tolerated with a walker she will be mobilized more today with physical therapy. She lives by herself at home prior to her hip fracture and walked without gait aid so I think that we may be able to have her discharged to home from here with a walker, if she feels strong enough. Will see how she does today. Subjective Subjective Date/Time Seen: 04/28/20 07:20 Objective Data Vital Signs Vital Signs: Vital Signs - 24 hr 04/27/20 08:00 04/27/20 12:00 04/27/20 12:28 Temperature 36.8 C Pulse Rate 81 94 47 L Respiratory Rate 20 Blood Pressure 166/75 H Pulse Oximetry 100 04/27/20 16:28 04/27/20 16:45 04/27/20 17:00 Temperature Pulse Rate 83 76 75 Respiratory Rate 17 14 14 Blood Pressure 148/80 H 153/91 H 138/90 Pulse Oximetry 100 94 95 04/27/20 17:15 04/27/20 17:30 04/27/20 17:45 Temperature Pulse Rate 81 75 78 Respiratory Rate 12 12 14 Blood Pressure 139/88 148/78 H 150/77 H Pulse Oximetry 95 98 99 11/11/20 18:00 04/27/20 18:15 04/27/20 18:45 Temperature 36.4 C L 36.4 C L 36.4 C L Pulse Rate 86 85 85 Respiratory Rate 18 18 18 Blood Pressure 145/82 H 148/76 H 133/74 Pulse Oximetry 100 100 100 04/27/20 19:37 04/27/20 20:14 04/27/20 22:00 Temperature 36.4 C L 36.4 C Pulse Rate 89 79 Respiratory Rate 16 16 Blood Pressure 122/70 119/70 Pulse Oximetry 100 99 100 04/28/20 06:00 Temperature 36.1 C L Pulse Rate 79 Respiratory Rate 16 Blood Pressure 123/77 Pulse Oximetry 100 Intake/Output Intake/Output: Intake & Output 04/25/20 04/26/20 04/27/20 04/28/20 23:59 23:59 23:59 23:59 Intake Total 1470 545 Output Total 1240 1200 Balance 230 -655 Meds/Results Medications: Active Medications Generic Name Dose Route Start Last Admin Trade Name Freq PRN Reason Stop Dose Admin Apixaban 2.5 mg 04/28/20 09:00 Apixaban 2.5 Mg Tablet PO 06/08/20 21:01 Q12HR EMILIE Acetaminophen 650 mg in 65 mls @ 260 mls/hr 04/27/20 18:00 04/28/20 06:29 Ofirmev 650 Mg Ivpb IVPB 04/29/20 12:14 260 mls/hr Q6HR EMILIE Administration Cefazolin Sodium 1 gm in 50 mls @ 100 mls/hr 04/27/20 22:00 04/28/20 06:58 Ancef 1 Gm/D5w 50 Ml Pm IVPB 04/28/20 14:29 100 mls/hr Q8H EMILIE Administration Vancomycin HCl 1,000 mg in 250 mls @ 250 mls/hr 04/28/20 02:00 04/28/20 02:36 Vancomycin 1,000 Mg/D5w 250 Ml IVPB 04/28/20 14:59 250 mls/hr Q12H EMILIE Administration Sodium Chloride 1,000 mls @ 80 mls/hr 04/27/20 17:52 04/27/20 18:53 Normal Saline Iv IV CONT 80 mls/hr .[id number] EMILIE Administration Levothyroxine Sodium 25 mcg 04/27/20 06:30 04/28/20 06:31 Levothyroxine Sodium Inj 100 Mcg/5 Ml Vial IV PUSH 25 mcg DAILY@0630 EMILIE Administration Morphine Sulfate 2 mg 04/27/20 03:59
[2020-04-28] MEDS: SENNA/DOCUSATE SODIUM TABLET 2 TAB PO (08:32)
[2020-04-28] MEDS: APIXABAN 2.5 MG TABLET PO ×2 (08:32→21:02)
[2020-04-28] MEDS: polyethylene glycoL 3350 17 GM POWD.PACK PO (08:35)
[2020-04-28 08:47] LABS: Add Urine Microscopic? YES; Appearance Urine Clear (Clear); Bilirubin Urine Negative (Negative); Blood Urine 1+ (Negative); Color Urine Straw (Yellow); Glucose Urine UA Negative (Negative); Ketones Urine Negative (Negative); Leukocyte Esterase Ur Negative LEU/UL (Negative); Nitrate Urine Negative (Negative); Protein Urine Negative (Negative); Specific Grav Ur 1.011 (1.001-1.035); Urobilinogen Urine Negative mg/dL (<2.0); WBC Urine 0-3 /hpf
--- NOTE | 2020-04-28 09:14 | WPDANESPN ---
Anes - Prog Note Post-Op Date/Time: 04/28/20 09:14 Cardiovascular status: normal Respiratory status: normal Airway patency: baseline Mental status: baseline Post-Op hydration status: normal Vital Signs: Last Vital Signs Temp 36.1 C L 04/28/20 06:00 Pulse 79 04/28/20 06:00 Resp 16 04/28/20 06:00 BP 123/77 04/28/20 06:00 Pulse Ox 100 04/28/20 06:00 Pain Score (VAS): 0 I/O: Intake & Output 04/27/20 04/28/20 04/28/20 23:59 07:59 15:59 Intake Total 1405 910 Output Total 1240 1200 Balance 165 -290 Laboratory Tests 04/28/20 05:45 04/28/20 05:45 04/27/20 04/27/20 04/28/20 11:09 12:43 05:45 WBC 4.7 RBC 3.66 L Hgb 10.6 L Hct 31.7 L MCV 86.6 MCH 29.0 MCHC 33.4 RDW 14.2 Plt Count 162 MPV 11.3 H Immature Gran % (Auto) 0.2 Neut % (Auto) 82.6 H Lymph % (Auto) 8.5 L [place] % (Auto) 8.7 H Eos % (Auto) 0.0 Baso % (Auto) 0.0 L Lymph # (Auto) 0.40 L [place] # (Auto) 0.4 Eos # (Auto) 0.0 Baso # (Auto) 0.0 Abs Immat Gran (auto) 0.01 Absolute Neuts (auto) 3.9 Absolute Nucleated RBC 0.0 Nucleated RBC % 0.0 Sodium Potassium 3.7 Chloride Carbon Dioxide Anion Gap BUN Creatinine Estim Creat Clear Calc Estimated GFR Glucose Calcium Urine Color Urine Appearance Urine pH Ur Specific [place] Urine Protein Urine Glucose (UA) Urine Ketones Ur Blood (Man) Urine Nitrate Urine Bilirubin Urine Urobilinogen Leukocyte Esterase Rfl Urine RBC Urine WBC Blood Type A Positive Antibody Screen Positive Antibody Identification Anti-Chau A Antigen Identification Chau A Antigen - NEGATIVE DEEPALI, IgG Interpret Not Performed DEEPALI, Poly Interpret Negative DEEPALI, Complement Interp Not Performed 04/28/20 04/28/20 05:45 08:25 WBC RBC Hgb Hct MCV MCH MCHC RDW Plt Count MPV Immature Gran % (Auto) Neut % (Auto) Lymph % (Auto) [place] % (Auto) Eos % (Auto) Baso % (Auto) Lymph # (Auto) [place] # (Auto) Eos # (Auto) Baso # (Auto) Abs Immat Gran (auto) Absolute Neuts (auto) Absolute Nucleated RBC Nucleated RBC % Sodium 132 L Potassium 3.6 Chloride 100 Carbon Dioxide 28 Anion Gap 4 L BUN 7 D Creatinine 0.50 L Estim Creat Clear Calc 66 Estimated GFR > 60 Glucose 119 H Calcium 8.2 L Urine Color Straw Urine Appearance Clear Urine pH 6.0 Ur Specific [place] 1.011 Urine Protein Negative Urine Glucose (UA) Negative Urine Ketones Negative Ur Blood (Man) 1+ H Urine Nitrate Negative Urine Bilirubin Negative Urine Urobilinogen Negative Leukocyte Esterase Rfl Negative Urine RBC 3-5 H Urine WBC 0-3 Blood Type Antibody Screen Antibody Identification Antigen Identification DEEPALI, IgG Interpret DEEPALI, Poly Interpret DEEPALI, Complement Interp Post-procedural complaints: nausea Patient Feedback: Patient satisfied with anesthetic care.
--- NOTE | 2020-04-28 09:37 | PM.PNCARD ---
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 She has bigeminal PACs on tele, Doubt that has contributed to syncope however will continue to monitor on tele for any bradyarrhythmia or heart block. She sustained hip fracture from the syncope/fall. She should have acceptable risk for surgery and she underwent right hip hemiarthroplasty on 04/27/2020.. She had echo 04/28/20: 1. Complete two-dimensional, color flow and Doppler transthoracic echocardiogram is performed. 2. Left ventricular chamber dimension is normal. 3. Left ventricular systolic function is normal, estimated at 55-60%. 4. Left atrial chamber dimension is normal. 5. Right atrial chamber dimension is normal. Patient appears stable for discharge or transfer to rehab from a cardiac perspective with follow-up in the Cardiology Clinic in 1 week. (2) Bigeminal rhythm: Code(s): I49.8 - Other specified cardiac arrhythmias Status: Acute Assessment and Plan: as above, with frequent APDs in a bigeminal pattern. Replaced K and continue to monitor. Had normal magnesium level. TSH within normal limits (3) Malignant neoplasm of middle lobe, bronchus or lung: Code(s): C34.2 - Malignant neoplasm of middle lobe, bronchus or lung Status: Chronic Assessment and Plan: Management as per primary service and Oncology. She has also lost her spouse recently. She is tearful today. Subjective Date/time seen: 04/28/20 09:37 Patient denies chest pain or dyspnea. She reports occasional postural dizziness now that she is becoming slightly more active. She is tearful at present with the loss of her spouse and with her recent medical diagnoses. Patient was seen and examined, chart reviewed, and case discussed with nurse. Review of Systems Review of Systems: All systems reviewed & are unremarkable except as noted in HPI and below Constitutional: Constitutional: Denies fatigue and Denies headache(s) Eyes: Eyes: Denies blurry vision ENT: Reports Normal hearing present and Denies headache(s) Cardiovascular: Cardiovascular: Denies chest pain, Denies diaphoresis, Denies pedal edema, Denies leg edema, Denies lightheadedness, Denies palpitations and Denies dyspnea Respiratory: Respiratory: Denies cough and Denies dyspnea Gastrointestinal: Gastrointestinal: Denies abdominal pain Musculoskeletal: Musculoskeletal: Denies back pain Neurologic: Reports Normal hearing present and Denies headache(s) Psychiatric: Psychiatric: Denies anxiety Endocrine: Endocrine: Denies fatigue and Denies palpitations Exam Narrative: Exam Narrative: Appears frail but in acute distress. Const: General: no acute distress Eyes: Sclera: sclerae normal Neck: Neck: no JVD Carotids: no bruits Resp: Effort & Inspection: normal respiratory effort Auscultation: clear to auscultation bilaterally Cardio: Rate: regular rate (regularily irregular. ) and not tachycardic Rhythm: regular rhythm Heart sounds: no gallops, no murmurs and no rubs Skin: General skin exam: normal color Neuro: Cranial nerves: Yes Normal hearing present Speech: normal speech Extrem: General: normal to inspection and no edema Psych: Affect: normal affect Objective Data Vital Signs Vital Signs: Vital Signs - 24 hr 04/27/20 12:00 04/27/20 12:28 04/27/20 16:28 Temperature 36.8 C Pulse Rate 94 47 L 83 Respiratory Rate 20 17 Blood Pressure 166/75 H 148/80 H Pulse Oximetry 100 100 04/27/20 16:45 04/27/20 17:00 04/27/20 17:15 Temperature Pulse Rate 76 75 81 Respiratory Rate 14 14 12 Blood Pressure 153/91 H 138/90 139/88 Pulse O
[2020-04-28] MEDS: POTASSIUM CHLORIDE 20 MEQ TABLET 40 MEQ PO (09:45)
[2020-04-28] MEDS: oxyCODONE HCL (*CRX) 2.5 MG TAB IR PO ×2 (09:51→18:50)
--- NOTE | 2020-04-28 10:21 | PCOTNOTE ---
On 04/28/20, the student, Candida Lugo, provided care and completed [facility] on [facility]. I have reviewed the student's documentation and agree with the findings.
--- NOTE | 2020-04-28 13:24 | PM.IMPN ---
Progress Note: A&P Assessment and Plan (1) Closed fracture of neck of right femur: Qualifiers: Encounter type: initial encounter Qualified Code(s): S72.001A - Fracture of unspecified part of neck of right femur, initial encounter for closed fracture Code(s): S72.001A - Fracture of unspecified part of neck of right femur, initial encounter for closed fracture Status: Acute Assessment and Plan: 04/28/20 13:24 admit to med-surg, NPO, urinary catheter, pain control as needed. Ortho has been consulted 04/27/20 14:05Patient is 74-year-old female with history of throat cancer and was treated in 1999 patient also has developed lung cancer and has been going through recent therapy at [facility], last night patient was walking to her kitchen and developed dizziness and patient felt dizzy and landed on the floor, not sure if she hit her head, not sure how long she was on the floor however patient was able to crawl and reach her and call EMS and patient was brought emergency department further evaluate, patient had a CT scan of the head which was negative for any acute injury to further evaluate patient had a CT of the head showed Subcapital fracture of right femoral neck. upon arrival patient tachycardia and was a concern the patient may been AFib, patient was seen by key carrier and suspect is started tachycardia and not in AFib, also the key carrier has cleared the patient for surgery, patient was seen by orthopedic surgeon and plan to surgical repair of the right hip later this afternoon. currently patient states feeling much better denies any chest pain shortness of breath palpitation fever or chills. today patient is sitting in the chair, had a surgical repair of her right hip on 04/27, patient was seen by her surgeon today and doing well, patient states the pain in the right hip is present but was able to do PT this morning, patient was seen by Cardiology denies any chest pain shortness of breath or dizziness, patient is clinically stable will continue to monitor, will follow the recommendation from her surgeon. (2) Syncope and collapse: Code(s): R55 - Syncope and collapse Status: Acute Assessment and Plan: likely reactive syncope. telemetry. IV fluids, TSH w reflex T4, Echocardiogram (3) Hypokalemia: Code(s): E87.6 - Hypokalemia Status: Acute Assessment and Plan: Jeniffer fuentes. Monitor serum potassium. (4) Malignant neoplasm of middle lobe, bronchus or lung: Code(s): C34.2 - Malignant neoplasm of middle lobe, bronchus or lung Status: Chronic Assessment and Plan: She received her first dose of radiation therapy yesterday. Continue Oncology recommendations. (5) Dyslipidemia: Code(s): E78.5 - Hyperlipidemia, unspecified Status: Chronic Assessment and Plan: resume atorvastatin when the patient is eating again. (6) Mixed action and resting tremor: Code(s): R25.9 - Unspecified abnormal involuntary movements Status: Chronic Assessment and Plan: Resume Sinemet when possible. (7) Hypothyroidism (acquired): Code(s): E03.9 - Hypothyroidism, unspecified Status: Chronic Assessment and Plan: IV levothyroxine ordered. Subjective Date/time seen: 04/28/20 13:24 admit to med-surg, NPO, urinary catheter, pain control as needed. Ortho has been consulted 04/27/20 14:05Patient is 74-year-old female with history of throat cancer and was treated in 1999 patient also has developed lung cancer and has been going through recent therapy at [facility], last night patient was walking to her kitchen and developed dizziness and patient felt dizzy and landed on the floor, not sure if she hit her head, not sure how long she was on the floor however patient was able to crawl and reach her and call EMS and patient was brought emergency department further evaluate, patient had a CT scan of the head which was negative for a
[2020-04-29] VITALS: PULSE 68
[2020-04-29 04:00] VITALS: PULSE 62
[2020-04-29 06:32] LABS: Hematocrit 35.6 % (37.0-47.0); Hemoglobin 11.6 g/dL (12.0-15.0); Mean Corpuscular HGB Conc 32.6 g/dl (32-36); Mean Corpuscular Hemoglobin 28.6 pg (26-34); Mean Corpuscular Volume 87.9 fl (80-100); Mean Platelet Volume 11.2 fl (7.4-10.4); Platelet Count Result 162 k/mm3 (150-375); Red Blood Count 4.05 M/mm3 (4.2-5.4); Red Cell Distribution Width 14.3 % (11.5-14.5); White Blood Count 4.8 K/mm3 (4.5-10.0)
[2020-04-29] MEDS: LEVOTHYROXINE SODIUM INJ 100 MCG/5 ML VIAL 25 MCG IV PUSH (06:38)
[2020-04-29 07:21] LABS: Vitamin D 25 Hydroxy 25.2 ng/mL
[2020-04-29 07:33] LABS: Anion Gap 5 mmol/L (8-16); Blood Urea Nitrogen 7 mg/dL (7-17); Calcium 8.5 mg/dL (8.4-10.2); Carbon Dioxide 31 mmol/L (22-30); Chloride 98 mmol/L (98-107); Estimated CRCL calculation 66 ml/min; Estimated Glomerular Filt Rate > 60; Glucose 106 mg/dL (65-105); Potassium 3.8 mmol/L (3.4-5.0); Sodium 134 mmol/L (137-145)
[2020-04-29 08:00] VITALS: PULSE 113
--- NOTE | 2020-04-29 09:08 | PM.PNCARD ---
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 She was found to have episodes of bigeminal PACs on tele. Rather not related to syncope. however will continue to monitor on tele for any bradyarrhythmia or heart block. She sustained hip fracture from the syncope/fall. She should have acceptable risk for surgery and she underwent right hip hemiarthroplasty on 04/27/2020.. She had echo 04/28/20: 1. Complete two-dimensional, color flow and Doppler transthoracic echocardiogram is performed. 2. Left ventricular chamber dimension is normal. 3. Left ventricular systolic function is normal, estimated at 55-60%. 4. Left atrial chamber dimension is normal. 5. Right atrial chamber dimension is normal. Patient appears stable for discharge or transfer to rehab from a cardiac perspective with follow-up in the Cardiology Clinic in [address] Jackson. (3) Personal history of nicotine dependence: Code(s): Z87.891 - Personal history of nicotine dependence Status: Acute (4) Malignant neoplasm of middle lobe, bronchus or lung: Code(s): C34.2 - Malignant neoplasm of middle lobe, bronchus or lung Status: Chronic Assessment and Plan: Management as per primary service and Oncology. She has also lost her spouse recently Subjective Date/time seen: 04/29/20 Pt was seen and examined, chart was reviewed, case d/w pt's nurse. Pt feels fine today. No CP, SOB or palpitations. No LE edema. Telemetry reviewed. Occasional PACs. no susstained arrhythmias. She is going to rehab today. Review of Systems Review of Systems: All systems reviewed & are unremarkable except as noted in HPI and below Constitutional: Constitutional: Reports as per HPI Eyes: Eyes: Reports as per HPI ENT: Reports system reviewed and no additional complaints, except as documented and Reports as per HPI Cardiovascular: Cardiovascular: Reports as per HPI Respiratory: Respiratory: Reports as per HPI Gastrointestinal: Gastrointestinal: Reports as per HPI Genitourinary: Genitourinary: Reports as per HPI Musculoskeletal: Musculoskeletal: Reports as per HPI Exam Const: General: no acute distress Nutritional Appearance: well nourished Orientation/consciousness: patient oriented x3 HENMT: Head: normal to inspection and atraumatic Ears: hearing grossly normal bilaterally Face and sinus: normal facial exam Eyes: General: appearance normal, both eyes and all related structures Pupils: Equal, round and reactive pupils present EOM: EOMs intact bilaterally Neck: Neck: supple Chest: Chest palpation & inspection: normal inspection of the chest Resp: Effort & Inspection: normal respiratory effort and no respiratory distress Auscultation: clear to auscultation bilaterally Cardio: Jugular venous distension: no JVD Rate: regular rate Heart sounds: S1 normal heart sound present, S2 normal heart sound present and no murmurs Peripheral pulses: Peripheral pulses 2+ throughout GI: GI Palp: No abdominal tenderness Auscultation: normal bowel sounds Skin: General skin exam: normal color Neuro: General: patient oriented x3 Cranial nerves: Yes Equal, round and reactive pupils present Extrem: General: normal to inspection and no clubbing, cyanosis or edema Objective Data Vital Signs Vital Signs: Vital Signs - 24 hr 04/28/20 12:00 04/28/20 14:00 04/28/20 16:00 Temperature 36.7 C Pulse Rate 96 101 H 106 H Respiratory Rate 16 Blood Pressure 144/69 H Pulse Oximetry 96 04/28/20 20:00 04/17
[2020-04-29] MEDS: APIXABAN 2.5 MG TABLET PO (09:23)
--- NOTE | 2020-04-29 13:39 | PM.PNORT ---
Progress Note: A&P Additional Plan Patient is now postop day 2. After cemented bipolar hemiarthroplasty right hip. She is doing well. She is afebrile with stable vital signs. Cardiology has seen her earlier today and feels she is ready for transfer home. I spoke to the therapist. She is walking 20 ft in the room. She is chronically somewhat frail and weak due to her cancer presumably and patient will have full-time help with her daughters. She would like her daughter to come pick her up today and bring her home. Her wound is dry. Her labs are stable. Her hemoglobin is 11.6 so she has just a mild acute blood loss anemia. Sodium is 134. Glucose 106. Her liver enzymes were normal on admission. We did find that she had a a low 25 hydroxy vitamin-D at 24.2 and I have prescribed [id number] units ergo calciferol once per week for 8 weeks. I would also recommend that she takes calcium plus D twice daily. She does have significant osteoporosis noted at time surgery. We are using Eliquis 2.5 mg twice daily for DVT prophylaxis. She is at higher risk for DVT due to her cancer diagnosis which is currently being treated with radiation therapy to her lungs. She will continue with the Eliquis for 6 weeks postoperatively. We will use because 8 sodium send the sides and polyethylene glycol for constipation prophylaxis and for pain she will take the Tylenol 650 mg every 6 hours and p.r.n. oxycodone 2.5 mg. I would like to see her in my office in 10-12 days. Subjective Subjective Date/Time Seen: 04/29/20 13:39 Objective Data Vital Signs Vital Signs: Vital Signs - 24 hr 04/28/20 14:00 04/28/20 16:00 04/28/20 20:00 Temperature 36.7 C Pulse Rate 101 H 106 H 62 Respiratory Rate 16 16 Blood Pressure 144/69 H Pulse Oximetry 96 96 04/29/20 00:00 04/29/20 04:00 04/29/20 08:00 Temperature Pulse Rate 68 62 113 H Respiratory Rate Blood Pressure Pulse Oximetry Intake/Output Intake/Output: Intake & Output 04/26/20 04/27/20 04/28/20 04/29/20 23:59 23:59 23:59 23:59 Intake Total 1470 2840 610 Output Total 1240 2050 800 Balance 230 790 -190 Meds/Results Medications: Active Medications Generic Name Dose Route Start Last Admin Trade Name Freq PRN Reason Stop Dose Admin Apixaban 2.5 mg 04/28/20 09:00 04/29/20 09:23 Apixaban 2.5 Mg Tablet PO 06/08/20 21:01 2.5 mg Q12HR EMILIE Administration Levothyroxine Sodium 25 mcg 04/27/20 06:30 04/29/20 06:38 Levothyroxine Sodium Inj 100 Mcg/5 Ml Vial IV PUSH 25 mcg DAILY@0630 [facility] Administration Morphine Sulfate 2 mg 04/27/20 03:59 04/27/20 07:32 Morphine Sulfate (*Crx) 4 Mg/Ml Inj IV PUSH 2 mg Q2H PRN Administration Pain Rated 7-10 Ondansetron HCl 4 mg 04/27/20 11:58 04/27/20 17:06 Ondansetron Inj 4 Mg/2 Ml Vial IV PUSH 4 mg ONCE PRN Administration Nausea Oxycodone HCl 5 mg 04/27/20 17:52 Oxycodone Hcl (*Crx) 5 Mg Tab Ir PO Q4H PRN Pain Rated 7-10 Oxycodone HCl 2.5 mg 04/28/20 07:40 04/28/20 18:50 Oxycodone Hcl (*Crx) 2.5 Mg Tab Ir PO 2.5 mg Q4HR PRN Administration Pain Rated 4-6 Polyethylene Glycol 17 gm 04/28/20 09:00 04/29/20 09:23 Polyethylene Glycol 3350 17 Gm Powd.Pack PO Not Given QAM [facility] Senna/Docusate Sodium 2 tab 04/27/20 17:52 04/29/20 09:23 Senna/Docusate Sodium Tablet PO Not Given BID [facility] Radiology Results: ITS Impressions Head CT 04/27/20 07:08 IMPRESSION: 1. No acute intracranial findings. 2. Chronic age related findings. Hip/Pelvis X-Ray 04/27/20 07:22 IMPRESSION: Acute right cervical femoral neck fracture. Chest X-Ray 04/27/20 07:25 IMPRESSION: Left rib fractures most likely subacute or chronic. Hip CT 04/27/20 08:13 IMPRESSION: 1. Subcapital fracture of right femoral neck. 2. Mild right hip osteoarthritis. Intraoperative X-Ray 04/27/20 15:16 IMPRESSION: 1. Expected appearance during righ
--- NOTE | 2020-04-29 14:29 | PM.DS ---
DS: Admitting Diagnosis Admitting Diagnosis Admitting Diagnosis: closed right femoral neck fracture DS: Discharge Diagnosis Discharge Diagnosis (1) Closed fracture of neck of right femur: Qualifiers: Encounter type: initial encounter Qualified Code(s): S72.001A - Fracture of unspecified part of neck of right femur, initial encounter for closed fracture Code(s): S72.001A - Fracture of unspecified part of neck of right femur, initial encounter for closed fracture Status: Acute Assessment and Plan: 04/28/20 13:24 admit to med-surg, NPO, urinary catheter, pain control as needed. Ortho has been consulted 04/27/20 14:05Patient is 74-year-old female with history of throat cancer and was treated in 1999 patient also has developed lung cancer and has been going through recent therapy at [facility], last night patient was walking to her kitchen and developed dizziness and patient felt dizzy and landed on the floor, not sure if she hit her head, not sure how long she was on the floor however patient was able to crawl and reach her and call EMS and patient was brought emergency department further evaluate, patient had a CT scan of the head which was negative for any acute injury to further evaluate patient had a CT of the head showed Subcapital fracture of right femoral neck. upon arrival patient tachycardia and was a concern the patient may been AFib, patient was seen by lining marker and suspect is started tachycardia and not in AFib, also the lining marker has cleared the patient for surgery, patient was seen by orthopedic surgeon and plan to surgical repair of the right hip later this afternoon. currently patient states feeling much better denies any chest pain shortness of breath palpitation fever or chills. today patient is sitting in the chair, had a surgical repair of her right hip on 04/27, patient was seen by her surgeon today and doing well, patient states the pain in the right hip is present but was able to do PT this morning, patient was seen by Cardiology denies any chest pain shortness of breath or dizziness, patient is clinically stable will continue to monitor, will follow the recommendation from her surgeon. (2) Syncope and collapse: Code(s): R55 - Syncope and collapse Status: Acute Assessment and Plan: likely reactive syncope. telemetry. IV fluids, TSH w reflex T4, Echocardiogram (3) Hypokalemia: Code(s): E87.6 - Hypokalemia Status: Acute Assessment and Plan: K rider. Monitor serum potassium. (4) Malignant neoplasm of middle lobe, bronchus or lung: Code(s): C34.2 - Malignant neoplasm of middle lobe, bronchus or lung Status: Chronic Assessment and Plan: She received her first dose of radiation therapy yesterday. Continue Oncology recommendations. (5) Dyslipidemia: Code(s): E78.5 - Hyperlipidemia, unspecified Status: Chronic Assessment and Plan: resume atorvastatin when the patient is eating again. (6) Mixed action and resting tremor: Code(s): R25.9 - Unspecified abnormal involuntary movements Status: Chronic Assessment and Plan: Resume Sinemet when possible. (7) Hypothyroidism (acquired): Code(s): E03.9 - Hypothyroidism, unspecified Status: Chronic Assessment and Plan: IV levothyroxine ordered. DS: Summary Hospital Course Reason for hospitalization: Chief complaint: closed right femoral neck fracture Narrative: This is a pleasant 74 year old female with known recurrent lung cancer who presented to the hospital today after suffering a syncopal event at home. The patient is known to have had throat cancer diagnosed in 2013 and underwent both surgery and radiation therapy for same. She is currently undergoing #5 radiation treatments at [facility] for right sided lung cancer. Yesterday she underwent her first radiation treatment. Last night the patient got dizzy after gettin
== END 2020-04-29 14:56 | disposition home health service (06) | DRG 522 ==
LOC: ANHED 03:39 → ANH3MEDSUR 04:26
PROVIDERS: Orthopaedic Surgery; Admitting Provider Family Medicine; Emergency Provider General Practice; PCP Internal Medicine; Visit Provider Family Medicine
PROC: 0SRR019 Replacement of Right Hip Joint, Femoral Surface with Metal Synthetic Substitute, Cemented, Open Approach (ICD-10-PCS; CPT 27125; principal; 2020-04-27 13:30)
DX: S72.011A Unspecified intracapsular fracture of right femur, initial encounter for closed fracture (principal); C34.2 Malignant neoplasm of middle lobe, bronchus or lung; D62 Acute posthemorrhagic anemia; Z68.1 Body mass index [BMI] 19.9 or less, adult; E87.6 Hypokalemia; R63.6 Underweight; E78.5 Hyperlipidemia, unspecified; R25.9 Unspecified abnormal involuntary movements; E03.9 Hypothyroidism, unspecified; I49.8 Other specified cardiac arrhythmias; I95.1 Orthostatic hypotension; W18.39XA Other fall on same level, initial encounter; R00.0 Tachycardia, unspecified; Z85.89 Personal history of malignant neoplasm of other organs and systems; Z87.891 Personal history of nicotine dependence; Z85.828 Personal history of other malignant neoplasm of skin; Z93.1 Gastrostomy status
CPT/HCPCS: 36415; 70450; 71045; 73502; 73700; 80048; 80053; 81001; 82306; 83735; 84132; 84443; 85025; 85027; 85610; 85730; 86850; 86880; 86900; 86901; 86902; 86922; 88305; 88307; 88311; 93005; 93306; 96365; 96375; 97110; 97116; 97161; 97165; 97530; 97535; 99285; A9270; C1713; C1776; J0131; J0171; J0330; J0690; J1100; J1200; J1885; J2270; J2405; J2704; J2710; J2795; J3010; J3370; J3480; J7030; J7120

== ENCOUNTER 2020-07-20 11:00 | Outpatient (RCR) | payer MEDICARE, SELFPAY ==
--- NOTE | 2020-07-04 15:47 | STOPEVAL ---
SPEECH THERAPY INITIAL EVALUATION: Thank you for referring Macey Park to [facility].? The patient is scheduled to be seen for therapy? 1-2x/week (pt stated she may not be able to attend x2 due to recent hip fracture) for 4 weeks. Please review, sign, date and return this plan of care MYLENE. I agree with and certify that the following plan of care is medically necessary. Referring Physician Date Attending Provider: Flavio Pat MD Referring Provider: Flavio Pat MD * Outpatient Evaluation Start: 07/04/20 10:20 Freq: Status: Active Protocol: Document 07/04/20 10:00 BECHERERT (Rec: 07/04/20 11:14 BECHERERT [email or web address]) Therapy Assessment Status Assessment Status Assessment Status Evaluation Outpatient Past Medical History Past Medical History Source of Past Medical History Patient Neurological History Hx Neurological Disorders No Significant History Cardiovascular History Hx Hypertension Yes Respiratory History Hx Other Respiratory Disorders Yes: Cancer of the right lung; watching spot in left lung Gastrointestinal History Hx Gastroesophageal Reflux Disease Yes Genitourinary History Hx Genitourinary Disorders No Significant History Musculoskeletal History Hx Orthopedic Surgery Yes: fx (R) hip April 27, 2020; fell at home Hematological History Hx Hematological Disorders No Significant History Endocrine History Hx Hypothyroidism Yes HEENT History Hx Cataracts Yes: Surg on both eyes Integumentary History Hx Skin Disorders No Significant History Reproductive History Hx Reproductive Disorders No Significant History Psychosocial History Hx Psychiatric Disorders No Significant History Pain History History of Any Previous or Ongoing No Significant History Instance of Pain Anesthesia History Hx Anesthesia Reactions No Significant History Other History Hx Cancer Yes: lung and throat Hx Radiation Therapy Yes: to throat 35 tx in 2014 Hx Other Surgeries Yes: (L) partial pharyngectomy & (L) neck dissection 11/30 Prior Level of Function Activity Level (Last 3 Months) Occupation retired Functional Cognition (Planning, Shopping Independent , Taking Medications) Cooking Yes Cleaning Yes Laundry Yes Shopping Yes Driving Yes Home Setting Living Situation Alone Prior Swallow Level Prior Intake Method Oral Prior Diet Regular (Level 7 Diet) Prior Liquid Consistency Thin (Level 0 Diet) Prior Cognition/Communication Prior Communication Level No Impair
--- NOTE | 2020-07-13 15:45 | PCSTNOTE ---
Patient called & cancelled scheduled appointment this date due to inclement weather
--- NOTE | 2020-08-05 15:45 | PCSTNOTE ---
Late entry: Pt was seen for dysphagia therapy on 07-20-20; Pt was seen for 45 minutes of swallowing therapy. S:Pt complained of lingual pain /10 and hip pain (chronic) 2/. O: Pt performed: laryngeal adduction exercises 10 repetitions x 2 sets, laryngeal elevation exercises: 10 repetitions x 2 sets tongue base exercises: 10 repetitions x 3 sets. A/P: Pt reported that the tongue base exercise: Jessica maneuver causes increased pain; therefore, she was instructed to omit that exercise. Pt stated that she occasionally had difficulty with pills but has since put them in applesauce or a similar consistency which helps. Pt denied having any instances of aspiration and none have been exhibited during any drinking (of her own water) during therapy. Pt states and demonstrates understanding of HEP. She stated that doesn't feel the need to return for therapy due to increased hip pain with getting out to therapy. Pt stated she will continue the HEP on her own at home. She was instructed that if difficulty persists she could pursue HH services. SHe was instructed that due to h/o neck radiation, she should indefinitely continue laryngeal exercises.
--- NOTE | 2020-08-08 09:44 | PCSTNOTE ---
SPEECH THERAPY DISCHARGE: Attending Provider: Flavio Pat MD Patient:Macey Park Date of :1945 Patient has not returned for any further treatments since 07/20/2020, therefore she will be discharged at this time. Patient?s initial visit was on 07/04/2020 10:00 and she had a total of 2 visits. Pt states and demonstrates understanding of HEP. She stated that doesn't feel the need to return for therapy due to increased hip pain with getting out to therapy. Pt stated she will continue the HEP on her own at home. She was instructed that if difficulty persists she could pursue HH services. She was instructed that due to h/o neck radiation, she should indefinitely continue laryngeal exercises. The goals have essentially been met. Thank you for referring this patient to [facility]. Please review, sign, date and return this discharge summary MYLENE. I have been updated about the patient's current status and I agree with discharge from the above service at this time. Referring Physician Date
== END 2020-08-09 10:11 | disposition home or self-care (01) ==
LOC: ANHST 11:00
PROVIDERS: PCP Internal Medicine; Referring Provider Internal Medicine Hematology & Oncology; Visit Provider Internal Medicine Hematology & Oncology
DX: C09.9 Malignant neoplasm of tonsil, unspecified (principal)
CPT/HCPCS: 92526; 92610

== ENCOUNTER 2020-08-10 14:30 | Emergency (ER) | payer MEDICARE, SELFPAY ==
[2020-08-10] VITALS (8 sets, daily range): BP systolic 99–146; BP diastolic 59–98; PULSE 75–99; RESP 13–22; TEMP 36.5; O2SAT 92–100
--- NOTE | ~2020-08-10 | CT_ITS ---
EXAMINATION:CT diagnostic chest w con DATE: 08/10/2020 17:44 INDICATION: Lung mass. TECHNIQUE: Computed tomography (CT) of the chest was performed with 75 mL Omnipaque 350 intravenous c ontrast. Automated exposure control and iterative reconstruction technique were employed. The dose-le ngth product (DLP) was 123.99 mGy-cm. COMPARISON: PET CT 03/24/2020, chest CT 12/22/2018, 08/07/18 FINDINGS: There is chronic scarring at the lung apices. There is a 2.0 cm nodule in apicoposterior se gment left upper lobe, increased from 0.9 cm on 12/22/2018 and 1.6 cm on 03/24/20. There is an 8 mm nodu le in right middle lobe, improved from 12 mm on 03/24/2020. Calcified right lung nodules and calcified right hilar lymph nodes are consistent with old granulomatous disease. There is mild atelectasis in right middle lobe. There are airspace opacities in lingula and anteromedial basal segment left lower lobe subjacent to healing fractures of left sixth-eighth ribs, consistent with atelectasis and contus ion. There is a 1.3 cm nodule in superior segment left lower lobe abutting the major fissure, increas ed from 0.8 cm on 03/24/2020. No pleural effusion. The heart size is normal. There are coronary artery calcifications. No pericardial effusion. Calcifications in the liver and spleen are consistent with old adenomatous disease. There is cortical thinning of left kidney. There is a 1.6 x 1.1 cm hyperenha ncing mass in left hepatic lobe. There is mild thoracic spondylosis. IMPRESSION: 1. Worsened pulmonary nodules, consistent with metastatic disease. 2. Airspace opacities in lingula and anteromedial basal segment left lower lobe subjacent to healing fractures of left sixth-eighth ribs, consistent with atelectasis and contusion. 3. 1.6 cm hyperenhancing liver mass not seen on prior imaging. Differential diagnosis includes siddharth ioma, focal nodular hyperplasia, and metastatic disease. Reviewed, dictated and finalized at location A. TROPHYSIOLOGIST IMPRESSION: 1. Worsened pulmonary nodules, consistent with metastatic disease. 2. Airspace opacities in lingula and anteromedial basal segment left lower lobe subjacent to healing fractures of left sixth-eighth ribs, consistent with atel ectasis and contusion. 3. 1.6 cm hyperenhancing liver mass not seen on prior imaging. Differential sudhakar gnosis includes hemangioma, focal nodular hyperplasia, and metastatic disease.
--- NOTE | ~2020-08-10 | XR_ITS ---
EXAMINATION: XR chest 2V DATE: 08/10/2020 16:09 INDICATION: Syncope. Weakness. Lung cancer. TECHNIQUE: Frontal and lateral views of the chest were obtained. COMPARISON: Chest single view 04/27/2020, PET CT 03/24/2020 FINDINGS: There is mild scarring at right lung apex. There is a left paratracheal mass. There is a no dule in left midlung zone. There are airspace opacities in peripheral left lower lung zone. No pleura l effusion or pneumothorax. The heart size is normal. IMPRESSION: 1. Worsened left paratracheal mass, worsened airspace opacities in left lower lung zone, and stable n odule in left midlung zone. These findings may be some combination of pneumonia, scarring, or maligna ncy. Reviewed, dictated and finalized at location A. ANTINE INSPECTOR IMPRESSION: 1. Worsened left paratracheal mass, worsened airspace opacities in left lower l tigist zone, and stable nodule in left midlung zone. These findings may be some co mbination of pneumonia, scarring, or malignancy.
--- NOTE | 2020-08-10 15:18 | ED.GENADULT ---
HPI - General Adult General Chief complaint: Dizziness Stated complaint: calix/low blood pressure Time Seen by Provider: 08/10/20 14:51 Source: patient Limitations: no limitations History of Present Illness HPI narrative: 75-year-old female She received her first Moderna shot yesterday Today she feels achy tired weak and has a subjective fever Daughter checked on her and was concerned She has no other particular focal complaints, denies a cough or shortness of breath, no chest pain, no nausea vomiting diarrhea, no urinary symptoms A bag of normal saline hung by EMS is just finishing up now Onset (ago): hour(s) Related Data Home Medications Medication Instructions Recorded Confirmed fluticasone furoate INTRANASAL 08/10/20 Allergies Allergy/AdvReac Type Severity Reaction Status Date / Time Fish Containing Products Allergy Mild HIVES Verified 08/10/20 15:52 adhesive tape Allergy Unknown skin Verified 08/10/20 15:52 irritation Sulfa (Sulfonamide Allergy Unknown Hives Verified 08/10/20 15:52 Antibiotics) Review of Systems Review of Systems: All systems reviewed & are unremarkable except as noted in HPI and below Constitutional: Constitutional: Denies chills, Reports fatigue, Reports fever(s), Denies headache(s) and Reports weakness Eyes: Eyes: Reports no additional eye complaints and Denies change in vision ENT: Denies headache(s), Denies epistaxis, Denies nasal congestion and Denies sore throat Cardiovascular: Cardiovascular: Denies chest pain, Denies leg edema, Denies palpitations and Denies dyspnea Respiratory: Respiratory: Denies cough, Denies dyspnea and Denies wheezing Gastrointestinal: Gastrointestinal: Denies abdominal pain, Denies diarrhea, Denies nausea and Denies vomiting Genitourinary: Genitourinary: Denies hematuria, Denies urinary frequency and Denies dysuria Musculoskeletal: Musculoskeletal: Reports myalgias, Denies deformity, Denies arthralgias, Denies joint swelling, Denies muscle weakness and Denies numbness Integumentary/Breasts: Skin/Breast: Denies rash and Denies wounds Neurologic: Denies headache(s), Denies focal weakness, Denies numbness and Denies weakness Psychiatric: Psychiatric: Reports no additional psychiatric complaints Endocrine: Endocrine: Reports fatigue and Denies palpitations Hematologic/Lymphatic: Hematologic/Lymphatic: Denies easy bleeding and Denies easy bruising Allergic/Immunologic: Allergic/Immunologic: Denies wheezing [facility] Past Medical History Medical History Bigeminal rhythm Dyslipidemia Hypothyroidism (acquired) Malignant neoplasm of middle lobe, bronchus or lung Mixed action and resting tremor Pain in throat Personal history of nicotine dependence Pigmented skin lesion suspicious for malignant neoplasm Skin neoplasm malignant Syncope and collapse Surgical History Surgical History History of gastrostomy, has currently Family History Family History Father Family history of malignant neoplasm Sibling Family history of malignant neoplasm Social History Social History Smoking packs per day: 2 Smoking cigarettes per day: 40.0 Years smoked: 30 Smoking pack-years: 60.00 Smoking status: Former smoker Tobacco type: cigarettes Second hand tobacco smoke exposure: No Smoking end date: 07/01/13 Alcohol intake: never Substance use: never Gender identity (if verbalized by the patient): Female Spiritual care concerns: No Exam Const: General: no acute distress, well developed and awake Orientation/consciousness: patient oriented x3 (alert) Limitations: no limitations HENMT: Head: normocephalic and atraumatic Ears: external ears normal General nose exam: No nasal discharge present and no
[2020-08-10] MEDS: ACETAMINOPHEN 500 MG TABLET 1000 MG PO (15:33)
[2020-08-10 16:33] LABS: Basophils Percent Auto 0.2 % (0.2-1.2); Hematocrit 36.8 % (37.0-47.0); Hemoglobin 11.7 g/dL (12.0-15.0); Immature Granulocyte Absolute 0.01 K/mm3 (0.00-0.031); Immature Granulocyte Percent A 0.2 % (0-0.5); Lymphocytes Absolute Auto 0.17 K/mm3 (0.9-3.2); Lymphocytes Percent Auto 4.1 % (18.3-44.2); Mean Corpuscular HGB Conc 31.8 g/dl (32-36); Mean Corpuscular Volume 91.1 fl (80-100); Mean Platelet Volume 10.4 fl (7.4-10.4); Monocytes Absolute Auto 0.4 K/mm3 (0.1-0.6); Monocytes Percent Auto 9.6 % (2.6-8.5); Neutrophils Absolute Auto 3.6 K/mm3 (1.3-6.7); Neutrophils Percent Auto 85.9 % (45.5-73.1); Platelet Count Result 200 k/mm3 (150-375); Red Blood Count 4.04 M/mm3 (4.2-5.4); Red Cell Distribution Width 13.9 % (11.5-14.5); White Blood Count 4.2 K/mm3 (4.5-10.0)
[2020-08-10 16:47] LABS: Anion Gap 3 mmol/L (8-16); Blood Urea Nitrogen 11 mg/dL (7-17); Calcium 8.6 mg/dL (8.4-10.2); Carbon Dioxide 30 mmol/L (22-30); Chloride 100 mmol/L (98-107); Estimated CRCL calculation 46 ml/min; Estimated Glomerular Filt Rate > 60; Glucose 117 mg/dL (65-105); Potassium 3.6 mmol/L (3.4-5.0); Sodium 133 mmol/L (137-145)
[2020-08-10 17:13] LABS: Add Urine Microscopic? YES; Appearance Urine Clear (Clear); Bilirubin Urine Negative (Negative); Blood Urine 1+ (Negative); Color Urine Yellow (Yellow); Glucose Urine UA Negative (Negative); Ketones Urine Trace mg/dL (Negative); Leukocyte Esterase Ur Negative LEU/UL (Negative); Mucus Urine Rare /lpf; Nitrate Urine Negative (Negative); Protein Urine 1+ mg/dL (Negative); Specific Grav Ur 1.017 (1.001-1.035); Squamous Epithelial Cell Urine Rare /hpf (Few); Urobilinogen Urine Negative mg/dL (<2.0); WBC Urine 0-3 /hpf
[2020-08-11 20:38] LABS: SARS-CoV-2 RNA PCR Negative
== END 2020-08-10 19:40 | disposition home or self-care (01) ==
PROVIDERS: Emergency Provider Emergency Medicine; PCP Internal Medicine
DX: R53.1 Weakness (principal); C34.90 Malignant neoplasm of unspecified part of unspecified bronchus or lung; E78.5 Hyperlipidemia, unspecified; E03.9 Hypothyroidism, unspecified
CPT/HCPCS: 36415; 51701; 71046; 71260; 80048; 81001; 85025; 99284; A9270; C9803; Q9967; U0003; U0005

== ENCOUNTER 2020-08-30 12:16 | Outpatient (CLI) | payer MEDICARE, SELFPAY ==
--- NOTE | ~2020-08-30 | PE_ITS ---
EXAMINATION: PET skull to mid thigh DATE: 08/30/2020 14:19 INDICATION: Malignant neoplasm of the right middle lobe. TECHNIQUE: Blood glucose level was 94 mg/dL. 9.979 mCi of 18-fluorodeoxyglucose (18-FDG) was administ ered i.v. Low dose computed tomography (CT) images were acquired from the base of the brain to the pr oximal thighs for attenuation correction and anatomic localization. Positron emission tomography (PET ) images were acquired in the same distribution beginning 50 minutes after injection. Images includin g fused PET/CT images were reconstructed in axial, coronal, and sagittal planes. Automated exposure c ontrol technique was employed. The dose-length product was 277.86mGy-cm. COMPARISON: Chest CT dated 08/10/2020 and PET/CT dated 03/24/2020 FINDINGS: Head/neck: There is symmetric increased activity in the oral cavity, palatine tonsils, anterior cervical paraspi nal muscles, laryngeal muscles and ocular muscles without CT correlate, likely physiologic. No pathol ogically enlarged cervical lymphadenopathy or suspicious foci of increased FDG uptake in the visualiz ed head or neck. Chest: There is increased FDG uptake associated with the 2.5 x 1.8 cm nodule at the apical posterior segment of the left upper lobe with maximal SUV of 7.6 as well as of the immediately adjacent pleural thicke phu at the anterior periphery with maximal SUV of 4.3. The nodule has increased in both size from 1. 9 x 0.9 cm at the time of the prior PET/CT as well as in degree of FDG uptake with maximal SUV of 4.9 . Mild FDG uptake with maximal SUV of 1.9 at the anterior periphery of the right apical segment. Mild increased FDG uptake with maximal SUV of 2.2 associated with a 1.6 x 1.1 cm nodule at the superior s egment of the left lower lobe. This also increased in both size and degree of FDG uptake from the glen or PET study which time it measured 10 x 6 mm with maximal SUV of 1.7. Mild increased FDG uptake with maximal SUV of 2.1 associated with focal airspace opacities at the posterolateral lingula and lang medial basilar segment of the left lower lobe along side a couple healing lateral left rib fractures. This includes an unchanged approximately 1.2 cm more nodular opacity. Calcified right lower lobe nod ule and calcified right hilar lymph nodes consistent with old granulomatous disease. No evident FDG u ptake associated with a linear band of atelectasis in the right middle lobe with resolution of a prio r more nodular region along the band of atelectasis. Heart size is normal. Atherosclerotic coronary a rtery calcifications. No pericardial or pleural effusion. No pathologically enlarged or FDG avid thor acic lymphadenopathy. Abdomen/pelvis/proximal thighs: Physiologic renal accumulation and excretion of FDG activity in the kidneys, bladder and along portio ns of ureters. 2 mm nonobstructing stone at the lower pole of the right kidney. Normal degree and het erogenous pattern of increased uptake throughout the liver without radiologic correlate or dominant F DG avid lesion. Couple small hepatic and splenic calcifications consistent with old granulomatous dis ease. The gallbladder, pancreas, spleen and bilateral adrenal glands are normal. Mild uptake scattere d throughout the bowels without radiologic correlate, also likely physiologic. No other abnormal foci of increased FDG uptake or pathologically enlarged lymphadenopathy in the abdomen, pelvis or proxima l thighs. Musculoskeletal: No abnormal uptake associated with an unchanged large densely sclerotic likely bone island at the rig ht ilium. New right total hip arthroplasty with likely physiologic mild uptake along the overlying li near surgical scar. No other suspicious lytic, blastic or FDG avid bone lesions. IMPRESSION: 1. Interval increase in size and FDG uptake of a couple nodules in the apicoposterior segment of the left upper lobe and in the superior segment
[2020-08-30 12:47] LABS: Glucose Point of Care 94 (65-105)
== END 2020-08-30 12:17 | disposition home or self-care (01) ==
PROVIDERS: PCP Internal Medicine; Visit Provider Radiology Radiation Oncology
DX: C34.2 Malignant neoplasm of middle lobe, bronchus or lung (principal)
CPT/HCPCS: 78815; 82948; A9552

== ENCOUNTER 2020-09-21 10:35 | Outpatient (CLI) | payer MEDICARE, SELFPAY ==
[2020-09-21 10:49] LABS: Basophils Percent Auto 0.7 % (0.2-1.2); Eosinophils Percent Auto 0.7 % (0-4.4); Hematocrit 41.1 % (37.0-47.0); Hemoglobin 13.1 g/dL (12.0-15.0); Immature Granulocyte Absolute 0.01 K/mm3 (0.00-0.031); Immature Granulocyte Percent A 0.2 % (0-0.5); Lymphocytes Absolute Auto 0.79 K/mm3 (0.9-3.2); Lymphocytes Percent Auto 18.3 % (18.3-44.2); Mean Corpuscular HGB Conc 31.9 g/dl (32-36); Mean Corpuscular Hemoglobin 28.4 pg (26-34); Mean Corpuscular Volume 89.2 fl (80-100); Mean Platelet Volume 10.4 fl (7.4-10.4); Monocytes Absolute Auto 0.5 K/mm3 (0.1-0.6); Monocytes Percent Auto 11.6 % (2.6-8.5); Neutrophils Percent Auto 68.5 % (45.5-73.1); Platelet Count Result 250 k/mm3 (150-375); Red Blood Count 4.61 M/mm3 (4.2-5.4); Red Cell Distribution Width 13.4 % (11.5-14.5); White Blood Count 4.3 K/mm3 (4.5-10.0)
[2020-09-21 10:52] LABS: Blood Urea Nitrogen 9 mg/dL (8-26); Carbon Dioxide 31 mmol/L (22-30); Chloride 97 mmol/L (98-109); Estimated Glomerular Filt Rate > 60; Glucose 92 mg/dL (70-105); Potassium 3.6 mmol/L (3.5-4.9); Sodium 139 mmol/L (138-146)
[2020-09-21 12:12] LABS: Alanine Aminotransferase 8 U/L (4-35); Albumin Level 4.7 g/dL (3.5-5.1); Alkaline Phosphatase 64 U/L (38-126); Anion Gap 7 mmol/L (8-16); Aspartate Amino Transferase 26 U/L (14-36); Bilirubin,Total 0.3 mg/dL (0.2-1.3); Blood Urea Nitrogen 11 mg/dL (7-17); Calcium 9.6 mg/dL (8.4-10.2); Carbon Dioxide 32 mmol/L (22-30); Chloride 99 mmol/L (98-107); Estimated Glomerular Filt Rate > 60; Glucose 97 mg/dL (65-105); Potassium 3.8 mmol/L (3.4-5.0); Sodium 138 mmol/L (137-145)
== END 2020-09-21 10:36 | disposition home or self-care (01) ==
LOC: ANHLAB 10:36
PROVIDERS: PCP Internal Medicine; Visit Provider Internal Medicine Hematology & Oncology
DX: C09.9 Malignant neoplasm of tonsil, unspecified (principal)
CPT/HCPCS: 36415; 80048; 80053; 85025

== ENCOUNTER 2020-11-21 13:11 | Outpatient (CLI) | payer MEDICARE, SELFPAY ==
--- NOTE | ~2020-11-21 | CT_ITS ---
EXAMINATION:CT diagnostic chest w con DATE: 11/21/2020 13:59 INDICATION: Head and neck cancer. TECHNIQUE: Computed tomography (CT) of the chest was performed with 75 mL Omnipaque 350 intravenous c ontrast. Automated exposure control and iterative reconstruction technique were employed. The dose-le ngth product (DLP) was 115.79 mGy-cm. COMPARISON: Chest CT 08/10/2020, 12/22/18 FINDINGS: There is mild emphysema. There is scarring at the lung apices. A calcified right lung nodul e and calcified right hilar lymph nodes are consistent with old granulomatous disease. There are 10 m m and 6 mm nodules in right middle lobe, one of which is new and one of which is larger. There is an ill-defined mass at left lung apex that is contiguous with apical scarring with interval improvement. There is a 1.8 x 2.6 cm nodule involving lingula and left lower lobe that is contiguous with healing fractures of left sixth, seventh, and eighth ribs with interval worsening, consistent with atelectas is and contusion with or without superimposed metastatic disease. There is a 10 mm nodule in left low er lobe abutting the major fissure that previously measured 11 mm. There is an 8 mm nodule in left lo wer lobe abutting the major fissure without change. There is a trace left pleural effusion. The heart size is normal. No pericardial effusion. Again seen is a 15 mm hyperenhancing mass in left hepatic l obe, stable from 08/10/2020. There is mild thoracic spondylosis. IMPRESSION: 1. Pulmonary nodules, some of which are improved and some of which are worsened, consistent with meta static disease. 2. 15 mm hyperenhancing liver mass, stable from 08/10/2020 and not seen on prior imaging. The differ tia diagnosis includes hemangioma, focal nodular hyperplasia, and metastatic disease. Reviewed, dictated and finalized at location A. IMPRESSION: 1. Pulmonary nodules, some of which are improved and some of which are worsened , consistent with metastatic disease. 2. 15 mm hyperenhancing liver mass, stable from 08/10/2020 and not seen on prior imaging. The differential diagnosis includes hemangioma, focal nodular hyperpl verona, and metastatic disease.
[2020-11-21 13:46] LABS: Estimated Glomerular Filt Rate > 60
== END 2020-11-21 13:12 | disposition home or self-care (01) ==
PROVIDERS: PCP Internal Medicine; Visit Provider Internal Medicine Hematology & Oncology
DX: C76.0 Malignant neoplasm of head, face and neck (principal); R91.8 Other nonspecific abnormal finding of lung field
CPT/HCPCS: 71260; Q9967

== ENCOUNTER 2021-01-16 14:04 | Outpatient (CLI) | payer MEDICARE, SELFPAY ==
[2021-01-16 15:19] LABS: Basophils Percent Auto 0.8 % (0.2-1.2); Eosinophils Percent Auto 0.8 % (0-4.4); Hematocrit 39.1 % (37.0-47.0); Hemoglobin 12.3 g/dL (12.0-15.0); Immature Granulocyte Absolute 0.06 K/mm3 (0.00-0.031); Immature Granulocyte Percent A 1.2 % (0-0.5); Lymphocytes Absolute Auto 0.67 K/mm3 (0.9-3.2); Lymphocytes Percent Auto 13.8 % (18.3-44.2); Mean Corpuscular HGB Conc 31.5 g/dl (32-36); Mean Corpuscular Volume 89.1 fl (80-100); Mean Platelet Volume 10.9 fl (7.4-10.4); Monocytes Absolute Auto 0.6 K/mm3 (0.1-0.6); Monocytes Percent Auto 13.2 % (2.6-8.5); Neutrophils Absolute Auto 3.4 K/mm3 (1.3-6.7); Neutrophils Percent Auto 70.2 % (45.5-73.1); Platelet Count Result 261 k/mm3 (150-375); Red Blood Count 4.39 M/mm3 (4.2-5.4); Red Cell Distribution Width 14.2 % (11.5-14.5); White Blood Count 4.8 K/mm3 (4.5-10.0)
[2021-01-16 15:35] LABS: Prothrombin Time 12.6 Seconds (11.1-14.7)
[2021-01-16 15:36] LABS: Partial Thromboplastin Time 28.9 SECONDS (22.3-36.8)
== END 2021-01-16 14:05 | disposition home or self-care (01) ==
PROVIDERS: PCP Internal Medicine; Visit Provider Surgery
DX: C76.0 Malignant neoplasm of head, face and neck (principal); Z01.818 Encounter for other preprocedural examination
CPT/HCPCS: 36415; 85025; 85610; 85730

== ENCOUNTER 2021-01-19 00:39 | Day surgery (SDC) | payer MEDICARE, SELFPAY ==
[2021-01-13 09:44] VITALS: BMI 17.6
--- NOTE | 2021-01-18 15:03 | WPDANESEPPF ---
Anes - Initial Pre Proc Eval Procedure: Operation Date: 01/19/21 13:00 Proposed Procedures p Insertion Jose Cath - Cynthia Jordan MD Date/Time: 01/18/21 15:03 Surgeon: Cynthia Jordan MD Pre Op Diagnosis: head and neck CA Patient Data Age: 75 Gender: F Height: 1.65 m Weight: 48 kg Allergies Allergy/AdvReac Type Severity Reaction Status Date / Time Sulfa (Sulfonamide Allergy Unknown Hives Verified 01/13/21 09:36 Antibiotics) adhesive tape AdvReac Unknown skin Verified 01/13/21 09:36 irritation Home Medications Medication Instructions Recorded Confirmed Type atorvastatin 20 mg tablet 20 mg PO DAILY #90 tablet 03/16/20 01/13/21 Rx fluticasone furoate 1 spray INTRANASAL DAILY 08/10/20 01/13/21 History biotin 5,000 mcg SUBLINGUAL DAILY 01/13/21 01/13/21 History carbidopa-levodopa 1 tablet PO BID PRN 01/13/21 01/13/21 History gabapentin 200 mg PO TID 01/13/21 01/13/21 History ipratropium bromide 1 spray INTRANASAL DAILY 01/13/21 01/13/21 History levothyroxine 50 mcg PO QAM 01/13/21 01/13/21 History ranitidine HCl [Zantac] 150 mg PO DAILY 01/13/21 01/13/21 History Patient hx anesthesia problems: none Family hx anesthesia problems: none PMFSH Past Medical History Medical History (Updated 01/18/21 @ 15:04 by Pradeep Anguiano MD) Bigeminal rhythm Dyslipidemia Head and neck cancer Hypothyroidism (acquired) Malignant neoplasm of middle lobe, bronchus or lung Mixed action and resting tremor Pain in throat Personal history of nicotine dependence Pigmented skin lesion suspicious for malignant neoplasm Skin neoplasm malignant Syncope and collapse Surgical History Surgical History History of gastrostomy, has currently Family History Family History Father Family history of malignant neoplasm Sibling Family history of malignant neoplasm Social History Social History Smoking packs per day: 2 Smoking cigarettes per day: 40.0 Years smoked: 45 Smoking pack-years: 90.00 Smoking status: Former smoker Tobacco type: cigarettes Second hand tobacco smoke exposure: No Smoking end date: 09/15/13 Alcohol intake: former Alcohol use details: SOCIAL DRINKER IN PAST Substance use: never Living arrangements: alone Gender identity (if verbalized by the patient): Female Spiritual care concerns: No Anes - Eval Final PreProcedure Day of Procedure 01/18/21 15:03 Patient weight: normal Heart: regular rate and rhythm Lungs: clear to auscultation and normal air movement Airway: Mallampati scale class II Neurological: alert and oriented Last oral intake: >/= 8 hours ASA classification: III Emergent: no Anesthetic plan: proceed Anesthesia type and monitoring: general GIVS Informed Consent: The patient's anesthetic plan and its attendant risks and benefits were discussed with the patient/family/POA. Questions were solicited and answers provided to the satisfaction of the patient/family/POA.
--- NOTE | ~2021-01-19 | XR_ITS ---
EXAMINATION: XR fl guide central line place DATE: 01/19/2021 14:03 INDICATION: Port catheter insertion TECHNIQUE: Single fluoroscopic spot image of the central chest was obtained during procedure performe d by Dr. Jordan. Radiologist was not present for the imaging or procedure. The amount of fluoroscopy t pamela used during this procedure was 0.2 minutes. COMPARISON: Chest radiograph dated 08/10/2020 FINDINGS: Right subclavian central venous port catheter which extends below the adan into the caudal superior vena cava with the distal tip collimated beyond the inferior margin of the [id number]. Visualized portions of the perihilar lungs are clear. Lap sponge markers project over the left mid lung zone. IMPRESSION: 1. Fluoroscopy utilized during right subclavian central venous port catheter placement. Reviewed, dictated and finalized at location A. IMPRESSION: 1. Fluoroscopy utilized during right subclavian central venous port catheter pl acement.
--- NOTE | ~2021-01-19 | XR_ITS ---
XR chest port-a-cath/central DATE: 01/19/2021 14:29 INDICATION: Insertion of Port-A-Cath TECHNIQUE: Portable AP chest on 01/19/2021 at 1423 hours COMPARISON: 11/21/2020 CT chest FINDINGS: Right subclavian Port-A-Cath catheter tip overlies the superior cavoatrial junction. Bilateral cervical surgical clips. Bilateral apical capping. There is soft tissue densities adjacent to displaced lateral seventh and eighth rib fractures. No pulmonary infiltrate or consolidation, pleural effusion or pulmonary vascular congestion or pneumo thorax is evident. Diffuse osteopenia. Heart size appears normal. Is aortic calcification and mild unfolding. IMPRESSION: Right subclavian Port-A-Cath catheter placement, distal tip overlying superior cavoatrial junction; no evidence of pneumothorax Reviewed, dictated and finalized at [facility]. Reviewed, dictated and finalized at location B. IMPRESSION: Right subclavian Port-A-Cath catheter placement, distal tip overlyi ng superior cavoatrial junction; no evidence of pneumothorax
[2021-01-19 11:00] VITALS: BP 164/98; PULSE 48; RESP 16; TEMP 36.8; O2SAT 100
--- NOTE | 2021-01-19 11:53 | PM.IMHP ---
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 Pt has had extensive treatment including previous chemo and radiation. Pt had R sided VAD in the past that was removed. Pt reports no issues c previous VAD. Pt had radiation to left upper lung previously. Chief Complaint: metastatic head and neck cancer Review of Systems Review of Systems: All systems reviewed & are unremarkable except as noted in HPI and below PMFSH Past Medical History Medical History Bigeminal rhythm Dyslipidemia Head and neck cancer Hypothyroidism (acquired) Malignant neoplasm of middle lobe, bronchus or lung Mixed action and resting tremor Pain in throat Personal history of nicotine dependence Pigmented skin lesion suspicious for malignant neoplasm Skin neoplasm malignant Syncope and collapse Surgical History Surgical History History of gastrostomy, has currently Family History Family History Father Family history of malignant neoplasm Sibling Family history of malignant neoplasm Social History Social History Smoking packs per day: 2 Smoking cigarettes per day: 40.0 Years smoked: 45 Smoking pack-years: 90.00 Smoking status: Former smoker Tobacco type: cigarettes Second hand tobacco smoke exposure: No Smoking end date: 09/15/13 Alcohol intake: former Alcohol use details: SOCIAL DRINKER IN PAST Substance use: never Living arrangements: alone Gender identity (if verbalized by the patient): Female Spiritual care concerns: No Meds Home Medications and Allergies Home Medications Medication Instructions Recorded Confirmed Type atorvastatin 20 mg tablet 20 mg PO DAILY #90 tablet 03/16/20 01/13/21 Rx fluticasone furoate 1 spray INTRANASAL DAILY 08/10/20 01/13/21 History biotin 5,000 mcg SUBLINGUAL DAILY 01/13/21 01/13/21 History carbidopa-levodopa 1 tablet PO BID PRN 01/13/21 01/13/21 History gabapentin 200 mg PO TID 01/13/21 01/13/21 History ipratropium bromide 1 spray INTRANASAL DAILY 01/13/21 01/13/21 History levothyroxine 50 mcg PO QAM 01/13/21 01/13/21 History ranitidine HCl [Zantac] 150 mg PO DAILY 01/13/21 01/13/21 History Allergies Allergy/AdvReac Type Severity Reaction Status Date / Time Sulfa (Sulfonamide Allergy Unknown Hives Verified 01/13/21 09:36 Antibiotics) adhesive tape AdvReac Unknown skin Verified 01/13/21 09:36 irritation Exam Const: General: no acute distress, alert, awake, Physically active and ill appearing Nutritional Appearance: cachectic Orientation/consciousness: patient oriented x3 Limitations: no limitations HENMT: Head: normal to inspection, normocephalic and atraumatic Neck: Neck: normal visual inspection, full ROM and no lymphadenopathy Chest: Chest palpation & inspection: normal inspection of the chest Other: R sided chest scar - well healed Resp: Effort & Inspection: normal respiratory effort Auscultation: diminished lung sounds GI: Inspection: normal to inspection and non-distended GI Palp: Yes Soft to palpation and No Tenderness to palpation present (GI) Assessment and Plan Assessment and plan (1) Head and neck cancer: Code(s): C76.0 - Malignant neoplasm of head, face and neck Status: Acute Assessment and Plan: will place VAD for chemo access
--- NOTE | 2021-01-19 11:57 | WPDHPUPDATE1 ---
History and Physical Update Update Date/Time: 01/19/21 11:57 History and Physical has been reviewed, including an updated exam of the patient. There are NO changes in the patient's condition. Risks, benefits, and alternatives have been discussed and questions answered. Patient agrees to proceed with procedure.
[2021-01-19] MEDS: KETOROLAC 15 MG/ML VIAL (*BKC) IV PUSH (12:33)
[2021-01-19] MEDS: LACTATED RINGERS 1,000 ML 30 ML IV CONT (12:33)
[2021-01-19] MEDS: ceFAZolin 2 GM/D5W 50 ML 2 GM/50 ML BAG IVPB (13:18)
[2021-01-19] MEDS: HEPARIN SODIUM 5,000 UNITS/ML VIAL 5000 UNITS IRRIGATION (13:44)
[2021-01-19] MEDS: BUPIVACAINE/EPINEPHRINE 0.5% 30 ML VIAL 20 ML INFILTRATE (13:54)
[2021-01-19] MEDS: HEPARIN SODIUM, PORCINE 10,000 UNITS/10 ML VIAL 4000 UNITS XX (14:00)
[2021-01-19 14:15] VITALS: BP 180/82; PULSE 51; RESP 14; O2SAT 94
--- NOTE | 2021-01-19 14:24 | W.PM.PROC2 ---
Procedure Note - Detailed Date of Procedure 01/19/21 Pre-op Diagnosis head and neck CA Post-op Diagnosis same Procedure Performed Placement of left subclavian venous access device under fluoroscopic guidance Surgeon Cynthia Jordan MD Anesthesia MAC and local Indications 75 y/o F c recurrent, metastatic head and neck cancer requiring chemotherapy Findings first stick L SCV Description of Procedure Patient was brought into the operating room and placed in the supine position. After adequate induction of mac anesthesia, the patient was prepped and draped in normal sterile fashion. Time-out was then done to verify the patient's identity, as well as the procedure being performed. I began by making a small incision in the left chest, I then gained access into the left subclavian vein with an 18 gauge needle. I then placed the guidewire into the vein and confirmed placement via fluoroscopic guidance. I then locally anesthetized the area in the left chest. I then enlarged the incision around the guidewire including making a subcutaneous pocket inferiorly to allow placement of the port itself. I then placed a dilating sheath over the guidewire into the left subclavian vein via sterile Seldinger technique. This was once again done and confirmed via fluoroscopic guidance. I then removed the dilator and the guidewire, now just leaving the sheath in the vein. I then fed the previously flushed catheter into the left subclavian vein under fluoroscopic guidance. At approximately 15 cm, the catheter was noted to be near the atrial caval junction. I then peeled away the sheath, now just leaving the catheter in the vein. I then was able to easily draw and flush from the catheter. The catheter was cut to fit and attached to the port itself. The port was placed into the previously made subcutaneous pocket and sutured in with 0 Ethibond suture. Final fluoroscopic view showed the termination of the catheter at the atrial caval junction with a nice smooth curvature back to the port itself. I was able to gain access to the port with a Shaw needle and was able to easily draw and flush from the port. I then flushed 4 cc of a final heparin flush into the port. The incision was closed with 3 0 Vicryl suture in the subcutaneous tissue and the skin was closed with 4 O Monocryl subcuticular suture. Dermabond was then placed on wound. The patient tolerated the procedure well and will be sent to the recovery room in stable condition. Implants L SCV VAD Estimated Blood Loss 5 Drains No Packing No Pathology none sent Complications No immediate complications Condition stable Disposition PACU
[2021-01-19 14:45] VITALS: BP 132/69; PULSE 72; RESP 16
[2021-01-19] MEDS: ONDANSETRON INJ 4 MG/2 ML VIAL IV PUSH (15:05)
[2021-01-19 15:15] VITALS: BP 138/65; PULSE 72; RESP 14
[2021-01-19 15:40] VITALS: BP 156/87; PULSE 70; RESP 14
--- NOTE | 2021-01-19 16:11 | SUR.PHASEII ---
1440 up to chair,complains decreased mobility to right arm,bp cuff to this arm and port a cath to right chest.when pt exercises more mobility evident to right arm,,chest xray done 142
== END 2021-01-19 14:40 | disposition home or self-care (01) ==
PROVIDERS: PCP Internal Medicine; Visit Provider Surgery
PROC: (CPT 36561; principal; 2021-01-19 13:00)
DX: C76.0 Malignant neoplasm of head, face and neck (principal); E78.5 Hyperlipidemia, unspecified; E03.9 Hypothyroidism, unspecified; Z93.1 Gastrostomy status; Z87.891 Personal history of nicotine dependence
CPT/HCPCS: 36561; 36415; 77001; 85025; 85610; 85730; C1788; J0690; J1644; J1885; J2250; J2405; J2704; J3010; J7030; J7120

== ENCOUNTER 2021-04-10 09:35 | Outpatient (CLI) | payer MEDICARE, SELFPAY ==
--- NOTE | ~2021-04-10 | CT_ITS ---
EXAMINATION: CT chest abdomen pelvis w con DATE: 04/10/2021 10:10 INDICATION: Head and neck cancer TECHNIQUE: Transaxial computed tomographic images of the chest, abdomen, and pelvis were obtained aft er the administration of 100 cc of Omnipaque 350 intravenous contrast. The dose-length product (DLP) was 305.85 mGy-cm. Automated exposure control and iterative reconstruction technique were employed. COMPARISON: 11/21/2020 FINDINGS: CHEST CT: A right internal jugular Port-A-Cath ends with its tip at the superior cavoatrial junction. An ill-de fined left apical mass contiguous with left apical scarring is not significantly changed. There is a stable 10 mm nodule of the left lower lobe abutting the major fissure. A 2.7 x 2.3 cm nodule of the l ingula and left lower lobe demonstrates slight increase in size, previously measuring 2.6 x 1.8 cm. T his is again noted to be contiguous with left sixth, seventh, eighth rib fractures which demonstrate nonunion. There has been interval confluence of the two previously described right middle lobe nodule s which now measure a total of 2.4 x 1.6 cm. There a are small pleural effusions. There is no pneumot horax. No pathologically enlarged thoracic lymph nodes are identified. The heart size is normal. Airs pace opacities have developed in the left lung apex in the superior segment of the left lower lobe. ABDOMEN/PELVIS CT: An 8 mm enhancing subcapsular mass in the left hepatic lobe previously measured 15 mm. No new liver m asses are identified. The spleen, pancreas, gallbladder, and adrenal glands are normal. There is a 15 mm cyst of the right kidney. A 2 mm nonobstructing stone is present in the right kidney lower pole. The left kidney is unremarkable. No pathologically enlarged abdominal or pelvic lymph nodes are ident ified. There is calcified atherosclerosis of the aorta and many of the other arteries. There is no fr ee intraperitoneal gas or evidence of bowel obstruction. Streak artifact from a right hip arthroplast y somewhat limits evaluation of the pelvis. IMPRESSION: 1. Mixed treatment response as evidenced by increase in size of nodules in the lingula and right midd le lobe and decrease in size of a liver mass. 2. Airspace opacities of the left upper lobes and lower lobes, new since the prior examination and [place] infectious or inflammatory. Reviewed, dictated and finalized at location A. IMPRESSION: 1. Mixed treatment response as evidenced by increase in size of nodules in the lingula and right middle lobe and decrease in size of a liver mass. 2. Airspace opacities of the left upper lobes and lower lobes, new since the pr ior examination and likely infectious or inflammatory.
== END 2021-04-10 09:36 | disposition home or self-care (01) ==
LOC: ANHIMG 09:40
PROVIDERS: PCP Internal Medicine; Visit Provider Internal Medicine Hematology & Oncology
DX: C76.0 Malignant neoplasm of head, face and neck (principal)
CPT/HCPCS: 71260; 74177; Q9967

== ENCOUNTER 2021-07-11 10:41 | Outpatient (CLI) | payer MEDICARE, SELFPAY ==
--- NOTE | ~2021-07-11 | CT_ITS ---
EXAMINATION: CT chest abdomen pelvis w con DATE: 07/11/2021 11:29 INDICATION: Head and neck cancer TECHNIQUE: Computed tomography (CT) of the chest, abdomen, and pelvis was performed with 100 cc Omnip aque 350 intravenous contrast. Automated exposure control and iterative reconstruction technique were employed. Exam dose: 299.50 mGy-cm total exam DLP. COMPARISON: 04/10/2021 CT chest abdomen pelvis FINDINGS: CHEST CT: Right Port-A-Cath catheter tip near superior cavoatrial area. There is prominently increase d irregular soft tissue left apical mass, measuring up to 3.7 x transverse 5 cm vertical dimension. Small nodular lesions are suggested along the upper aspect of the left greater fissure, possibly pleu ral masses. There is patchy infiltrate or atelectasis in the posterior segment of the left upper lobe and to a gr eater extent superior segment of the left lower lobe. Interval increased size of irregular mass, currently measuring approximately 2.1 x 2.8 cm dimension. Persistent approximately 1.7 cm x 2.2 basilar middle lobe mass, relatively stable since 04/10/2021. T here is moderate left pleural effusion. There are multiple pleural soft tissue masses, the largest me asuring up to 10 mm depth, 18 mm transverse dimension, consistent with multiple new left pleural meta static lesions since 04/10/2021. Right apical capping. Normal heart size. No pericardial effusion. No thoracic aortic aneurysm or dissection. Left sixth, seventh and eighth rib fractures. ABDOMEN/PELVIS CT: The liver, gallbladder, bile ducts, spleen, pancreas, and adrenal glands are unremarkable. 1.5 cm right renal cyst. Small pinpoint nonobstructing lower pole right renal calculus. There is a sm all mid left renal nonobstructing calculus. No hydronephrosis. There is atherosclerotic calcification of the abdominal aorta but no aneurysm. No intraperitoneal or retroperitoneal or pelvic mass lesion or adenopathy or ascites is evident. No bowel obstruction, bowel wall thickening, pneumatosis or intraperitoneal free air is evident. No e vidence of appendicitis. Enlarged to 3.5 cm wide osteosclerotic lesion of the right iliac crest. Smaller right ilium 25 mm ost eosclerotic lesion. Right hip prosthesis. IMPRESSION: Increased left apical irregular mass suspicious for malignancy Multiple left pleural metastases with mild to moderate left pleural effusion Mildly increased lingular mass, stable right middle lobe mass Small nonobstructing calculus of each kidney 1.5 cm stable right renal cyst Reviewed, dictated and finalized at [facility]. Reviewed, dictated and finalized at location A. BIOLOGY
== END 2021-07-11 10:42 | disposition home or self-care (01) ==
PROVIDERS: PCP Internal Medicine; Visit Provider Internal Medicine Hematology & Oncology
DX: C76.0 Malignant neoplasm of head, face and neck (principal); N28.1 Cyst of kidney, acquired; N20.0 Calculus of kidney; R91.8 Other nonspecific abnormal finding of lung field
CPT/HCPCS: 71260; 74177; Q9967

== ENCOUNTER 2021-08-28 12:46 | Outpatient (CLI) | payer MEDICARE, SELFPAY ==
--- NOTE | ~2021-08-28 | XR_ITS ---
EXAMINATION: XR fl port a cath w contrast DATE: 08/28/2021 13:44 INDICATION: Port dysfunction. TECHNIQUE: I performed fluoroscopy of the chest wall the port catheter was injected with contrast. Fl uoroscopy exposure time was 0.5 minutes. 449 images were obtained. COMPARISON: CT 07/11/2020 FINDINGS: There is a right subclavian port with tip at superior cavoatrial junction. There is normal blood return and normal injection of contrast in the neutral position. With movement of the shoulder, the catheter becomes pinched between the clavicle and first rib. When pinched, the catheter does not give blood return and does not inject with contrast. IMPRESSION: 1. Pinching of the port catheter between the clavicle and first rib in some shoulder positions. When pinched, the catheter does not give blood return and does not inject with contrast. Reviewed, dictated and finalized at location A. IMPRESSION: 1. Pinching of the port catheter between the clavicle and first rib in some zachery ulder positions. When pinched, the catheter does not give blood return and does not inject with contrast.
== END 2021-08-28 12:47 | disposition home or self-care (01) ==
LOC: ANHIMG 12:51
PROVIDERS: PCP Internal Medicine; Visit Provider Internal Medicine Hematology & Oncology
DX: C76.0 Malignant neoplasm of head, face and neck (principal); Z95.828 Presence of other vascular implants and grafts
CPT/HCPCS: 36598; Q9966

== ENCOUNTER 2021-08-30 11:03 | Emergency (ER) | payer MEDICARE, SELFPAY ==
--- NOTE | ~2021-08-30 | XR_ITS ---
EXAMINATION: XR chest 2V DATE: 08/30/2021 12:59 INDICATION: Hypokalemia. TECHNIQUE: Frontal and lateral views of the chest were obtained. COMPARISON: Chest single view 01/19/2021, chest CT 07/11/2021 FINDINGS: There is a small left pleural effusion. There is mild scarring at right lung apex. There ar e airspace opacities in right lower lung zone and left upper, mid, and lower lung zones. No pneumotho rax. The heart size is normal. There is a right subclavian port with tip in superior vena cava. At [place] perior cavoatrial junction. There are old left rib fractures. There are surgical clips in the neck. IMPRESSION: 1. Airspace opacities in right lower lung zone and all left lung zones, likely metastatic disease and treatment changes. 2. Small left pleural effusion. Reviewed, dictated and finalized at location A.
[2021-08-30 11:05] VITALS: BP 131/82; PULSE 46; RESP 20; TEMP 36.4; O2SAT 98
--- NOTE | 2021-08-30 11:19 | ECG_ITS ---
Measurements Intervals [place] Rate: 103 P: 75 MO: 138 QRS: -23 QRSD: 90 T: 64 QT: 378 QTc: 496 Interpretive Statements SINUS TACHYCARDIA WITH OCCASIONAL SUPRAVENTRICULAR PREMATURE COMPLEXES LEFT ATRIAL ENLARGEMENT [-0.15mV P-WAVE IN V1/V2] BORDERLINE LEFT AXIS DEVIATION [QRS AXIS < -20] POSSIBLE RIGHT VENTRICULAR CONDUCTION DELAY [RSR (QR) IN V1/V2] COMPARED TO ECG 04/27/2020 05:51:38 SINUS TACHYCARDIA NOW PRESENT Electronically Signed On 08-30-2021 13:14:51 CDT by Nissa Costa M.D.
[2021-08-30] MEDS: POTASSIUM CHLORIDE INJ 40 MEQ in SODIUM CHLORIDE 0.9% IV 500 ML 130 MEQ IVPB (12:33)
[2021-08-30 14:52] VITALS: BP 135/76; PULSE 104; RESP 16; O2SAT 100
[2021-08-30] MEDS: POTASSIUM CHLORIDE 20 MEQ TABLET 40 MEQ PO (16:35)
--- NOTE | 2021-08-30 17:26 | PC.NURSE ---
patient received IV and po K+. Refusing to have blood redrawn for K+ recheck. Dr melara. ok for discharge
--- NOTE | 2021-08-30 17:34 | ED.GENADULT ---
HPI - General Adult General Chief complaint: Recheck/Abnormal Lab/Rx Stated complaint: Abnormal Labs Time Seen by Provider: 08/30/21 12:09 Source: patient and family Mode of arrival: ambulatory Limitations: no limitations History of Present Illness HPI narrative: 76-year-old with a history of hypokalemia, lung CA presently going through chemo low potassium levels. Blood work was done earlier this morning and was told to go to the emergency room has her potassium was 2.4. Patient denies any fever or chills no shortness of breath she states that she was nauseated last week none at this time. She states that she is supposed to take oral potassium on a daily basis but she states that she is not doing that as it causes burning sensation in her throat and in the abdomen. Onset (ago): day(s) (1) Related Data Home Medications Medication Instructions Recorded Confirmed vitamin B complex 1 cap PO DAILY 01/27/21 08/28/21 ferrous sulfate 325 mg PO DAILY 03/31/21 08/28/21 Allergies Allergy/AdvReac Type Severity Reaction Status Date / Time Sulfa (Sulfonamide Allergy Unknown Hives Verified 07/27/21 12:18 Antibiotics) Review of Systems Review of Systems: All systems reviewed & are unremarkable except as noted in HPI and below Constitutional: Constitutional: Reports no additional constitutional complaints Eyes: Eyes: Reports no additional eye complaints ENT: Reports system reviewed and no additional complaints, except as documented Cardiovascular: Cardiovascular: Reports no additional cardiovascular complaints Respiratory: Respiratory: Reports no additional respiratory complaints Gastrointestinal: Gastrointestinal: Reports no additional gastrointestinal complaints Musculoskeletal: Musculoskeletal: Reports no additional musculoskeletal complaints Integumentary/Breasts: Skin/Breast: Reports system reviewed and no additional complaints, except as docu PMFSH Past Medical History Medical History Bigeminal rhythm Dyslipidemia Head and neck cancer Hypothyroidism (acquired) Malignant neoplasm of middle lobe, bronchus or lung Mixed action and resting tremor Pain in throat Personal history of nicotine dependence Pigmented skin lesion suspicious for malignant neoplasm Skin neoplasm malignant Syncope and collapse Surgical History Surgical History History of gastrostomy, has currently Family History Family History Father Family history of malignant neoplasm Sibling Family history of malignant neoplasm Social History Social History Smoking packs per day: 2 Smoking cigarettes per day: 40.0 Years smoked: 36 Smoking pack-years: 72.00 Smoking status: Former smoker Tobacco type: cigarettes Second hand tobacco smoke exposure: No Smoking end date: 09/15/13 Alcohol intake: former Alcohol use details: SOCIAL DRINKER IN PAST Substance use: never Gender identity (if verbalized by the patient): Female Spiritual care concerns: No Exam Narrative: GENERAL: Thin and frail and in no acute distress. HEAD: Normocephalic, atraumatic. EYES: PERRLA and EOMI. NECK: Supple. CHEST: Clear to auscultation. No respiratory distress. HEART: Regular rate and rhythm. No murmur heard. Normal peripheral pulses. ABDOMEN: Soft, nontender, nondistended, normal active bowel sounds. EXTREMITIES: Normal range of motion. No edema. SKIN: Warm, dry, no rash. NEURO: No focal deficits. Alert and oriented x3. PSYCH: Normal mood and affect. Course Course Emergency Course: Inform patient about her lab work. We will give her IV K rider while she is in the ER patient declined admission. Patient declined repeat potassium blood draw. She wants to go home. Vital Signs Vital signs: Vital Signs Temperature 36.4
[2021-08-30 17:50] VITALS: PULSE 98; RESP 20; O2SAT 96
== END 2021-08-30 18:09 | disposition home or self-care (01) ==
PROVIDERS: Emergency Provider Family Medicine; PCP Internal Medicine
DX: E87.6 Hypokalemia (principal); R00.0 Tachycardia, unspecified; Z87.891 Personal history of nicotine dependence; E03.9 Hypothyroidism, unspecified; C76.0 Malignant neoplasm of head, face and neck
CPT/HCPCS: 36415; 71046; 80053; 83735; 84443; 85025; 93005; 96365; 96366; 99284; A9270; J3480; J7040

== ENCOUNTER 2021-09-13 09:34 | Outpatient (CLI) | payer MEDICARE, SELFPAY ==
[2021-09-13 10:57] LABS: INR 0.9; Partial Thromboplastin Time 29.7 SECONDS (22.3-36.8); Prothrombin Time 11.9 Seconds (11.1-14.7)
== END 2021-09-13 09:35 | disposition home or self-care (01) ==
PROVIDERS: PCP Internal Medicine; Visit Provider Surgery
DX: Z01.818 Encounter for other preprocedural examination (principal)
CPT/HCPCS: 36415; 85610; 85730

== ENCOUNTER 2021-09-14 00:41 | Day surgery (SDC) | payer MEDICARE, SELFPAY ==
[2021-09-07 12:20] VITALS: BMI 15.9
--- NOTE | 2021-09-07 12:24 | PC.NURSE ---
Report to the Outpatient Waiting Room, entrance under the green pavilion located off [facility], at time __1130 on date _09/14/21 . OR Time: ___1:30PM . - You and your visitor will be asked a series of questions to screen for COVID 19 for your protection. - A mask is required within the hospital. Preoperative COVID Testing Requirements: NONE No COVID Test needed if: (proof is required; if not received patient will have Rapid Test prior to entry) - Patient has received COVID Vaccine at least 14 days prior to procedure date or - Patient has positive COVID test result within last 90 days of surgery date. COVID Test needed if above criteria is not met If not COVID vaccinated a COVID test must be conducted within 72 hours of surgery and patient is asked to isolate self from time of testing until procedure. You will go to the [facility] for your COVID testing. The [facility] site is located at the corner of [address] from [facility]. You will only be called if COVID results are positive and your surgeon may reschedule your elective surgery date. Patients may have clear liquids (water, carbonated beverages, clear teas, apple juice) until 3 hours prior to surgery with a maximum of 20 ounces. - No food from midnight until time of surgery - Infants may have breast milk until 4 hours before surgery, formula 6 hours prior to surgery. - Children will be allowed to drink immediately following surgery. If applicable, please bring a bottle or sippy cup to assist with drinking. Juice, water, soda, and popsicles are readily available. For infants on formula, please bring formula the day of surgery. Pacifiers are allowed. Take the following medications with a SIP of water the morning of surgery: _LEVOTHYROXINE, GABAPENTIN__ Medications to discontinue per physician VIT B12___3 DAYS PRIOR TO SURGERY Date to take last dose____09/10/21 Please no make-up, nail equatorial guinean, hairspray, perfume, deodorant, or body powder the day of surgery. No jewelry (including any body piercings) or valuables the day of surgery, leave them at home. Please take a shower or bath the night before, or the morning of, surgery with an antibacterial soap. Wear comfortable, loose fitting clothing. Children are encouraged to wear pajamas. - Jewelry must be removed prior to entering the operating room. Rings and piercings that are not removed may be cut off. - The hospital will not accept responsibility for valuables. - Please leave all valuables, including medications, at home the day of surgery. If you are going home after surgery, a licensed transfer driver must drive you home. - NO public transportation without another adult. - We recommend that an adult stay with you for 24 hours following discharge. - We also recommend that you do not drive, make important decision, drink alcoholic beverages, or take any drugs that were not prescribed by your health care provider for at least 24 hours after your discharge time. For Pediatric surgeries, we recommend two adults accompany the child home (only one inside the building at this time). One visitor will be allowed to accompany the patient into the hospital. Patients visitor will be instructed to remain with patient at all times or leave the building. We will allow the visitor to come back to the postoperative area when patient is ready. Follow any additional instructions given to you from your surgeon. Telephone instructions given to ____PT and asked if any additional questions and then verbalized understanding. Patient advised to call surgeon office or pre surgery nurse liaison [phone] if any additional questions.
--- NOTE | 2021-09-13 15:15 | WPDANESEPPF ---
Anes - Initial Pre Proc Eval Procedure: Operation Date: 09/14/21 13:30 Proposed Procedures p Removal of Jose Cath and Insertion of Jose Cath - Cynthia Jordan MD Date/Time: 09/13/21 15:15 Surgeon: Cynthia Jordan MD Pre Op Diagnosis: head and neck cancer Patient Data Age: 76 Gender: F Height: 1.65 m Weight: 43.36 kg Allergies Allergy/AdvReac Type Severity Reaction Status Date / Time Sulfa (Sulfonamide Allergy Intermediate Hives Verified 09/14/21 11:52 Antibiotics) Home Medications Medication Instructions Recorded Confirmed Type ondansetron HCl [Zofran] 4 mg PO Q6H PRN #20 tablet 01/19/21 09/14/21 Rx amoxicillin 500 mg tablet 500 mg PO .COMPLEX #8 tablet 02/10/21 09/13/21 Rx atorvastatin 20 mg tablet 20 mg PO DAILY #90 tablet 03/13/21 09/14/21 Rx ferrous sulfate 325 mg PO DAILY 03/31/21 09/14/21 History levothyroxine 75 mcg tablet 75 mcg PO DAILY #90 tablet 08/07/21 09/14/21 Rx gabapentin 100 mg capsule 200 mg PO TID #270 cap 08/22/21 09/14/21 Rx cyanocobalamin (vitamin B-12) 1 cap DAILY 09/07/21 09/14/21 History ECG: SINUS RHYTHM SUPRAVENTRICULAR BIGEMINY LEFT AXIS DEVIATION INCOMPLETE RIGHT BUNDLE BRANCH BLOCK CANNOT RULE OUT SEPTAL INFARCT, AGE INDETERMINATE BASELINE ARTIFACT- I, III, AVL ABNORMAL ECG Electronically Signed On 04-27-2020 8:47:20 CORN DETASSELER by Gino Tracy D.O. Other studies: Electronically Signed On 04-27-2020 8:47:20 CORN DETASSELER by Gino Tracy D.O. Dictated By: Gino Tracy DO 04/27/20 0551 Other Studies: Summary 1. Complete two-dimensional, color flow and Doppler transthoracic echocardiogram is performed. 2. Left ventricular chamber dimension is normal. 3. Left ventricular systolic function is normal, estimated at 55-60%. 4. Left atrial chamber dimension is normal. 5. Right atrial chamber dimension is normal. 6. The aortic valve is trileaflet. 7. There is no aortic valve stenosis. 8. The mitral valve has normal leaflets. 9. There is no mitral valve regurgitation. 10. Normal inferior vena cava with >50% collapse upon inspiration. 11. There is no pericardial effusion. Patient hx anesthesia problems: none Family hx anesthesia problems: none Results Review: All pre-operative results and documents have been reviewed as part of the pre-operative evaluation. [facility] Past Medical History Medical History Bigeminal rhythm Dyslipidemia Head and neck cancer Hypothyroidism (acquired) Malignant neoplasm of middle lobe, bronchus or lung Mixed action and resting tremor Pain in throat Personal history of nicotine dependence Pigmented skin lesion suspicious for malignant neoplasm Skin neoplasm malignant Syncope and collapse Surgical History Surgical History History of gastrostomy, has currently Family History Family History Father Family history of malignant neoplasm Sibling Family history of malignant neoplasm Social History Social History Smoking packs per day: 2 Smoking cigarettes per day: 40.0 Years smoked: 45 Smoking pack-years: 90.00 Smoking status: Former smoker Tobacco type: cigarettes Second hand tobacco smoke exposure: No Smoking end date: 09/15/13 Alcohol intake: former Alcohol use details: SOCIAL DRINKER IN THE PAST Substance use: never Substance use type: does not use Living arrangements: alone Gender identity (if verbalized by the patient): Female Spiritual care concerns: No Anes - Eval Final PreProcedure Day of Procedure 09/13/21 15:15 Patient weight: cachectic Heart: regular rate and rhythm Lungs: clear to auscultation and normal air movement Airway: Mallampati scale class II Neurological: alert and oriented Last oral intake: >/= 8 hours ASA classification: III Emergent: no Anesthetic plan: proceed
--- NOTE | ~2021-09-14 | XR_ITS ---
EXAMINATION: XR fl guide central line place DATE: 09/14/2021 14:46 INDICATION: Port placement. TECHNIQUE: An intraoperative fluoroscopic view of the chest was obtained. I was not present. Fluorosc opy exposure time was 10 seconds. COMPARISON: Chest single view 09/14/2021. FINDINGS: There is a right internal jugular port with tip in superior vena cava. IMPRESSION: 1. Port tip in superior vena cava. Reviewed, dictated and finalized at location A.
--- NOTE | ~2021-09-14 | XR_ITS ---
EXAMINATION: XR chest port-a-cath/central DATE: 09/14/2021 15:21 INDICATION: Port placement. TECHNIQUE: A single frontal view of the chest was obtained. COMPARISON: Chest 2 views 08/30/2021, chest CT 07/11/2021 FINDINGS: There is a small left pleural effusion. There is mild scarring at right lung apex. There ar e airspace opacities in right lower lung zone and left upper, mid, and lower lung zones. No pneumotho rax. The heart size is normal. There is a right internal jugular port with tip in superior vena cava. There are old left rib fractures. There are surgical clips in the neck. IMPRESSION: 1. Port tip in superior vena cava. 2. Stable airspace opacities in right lower lung zone and all left lung zones, likely metastatic dise ase and treatment changes. 3. Stable small left pleural effusion. Reviewed, dictated and finalized at location A. IMPRESSION: 1. Port tip in superior vena cava. 2. Stable airspace opacities in right lower lung zone and all left lung zones, likely metastatic disease and treatment changes. 3. Stable small left pleural effusion.
[2021-09-14 11:45] VITALS: BP 153/81; PULSE 86; RESP 16; TEMP 36.6; O2SAT 93
--- NOTE | 2021-09-14 12:02 | PM.IMHP ---
H&P: HPI History of Present Illness Date/Time: 09/14/21 12:02 Pt is a 76 y/o F c known recurrent metastatic head and neck cancer currently on chemotherapy. Pt had R SCV VAD placed on 01/19/21. Pt reports initially port functioned well s issue. Over last few tx, pt reports port only works if she is positioned properly. Pt had port study showing pinching at clavicle in certain positions. Given this and need for cont treatment, she is here for removal and replacement of R SCV VAD. Chief Complaint: metastatic head and neck cancer Review of Systems Review of Systems: All systems reviewed & are unremarkable except as noted in HPI and below PMFSH Past Medical History Medical History Bigeminal rhythm Dyslipidemia Head and neck cancer Hypothyroidism (acquired) Malignant neoplasm of middle lobe, bronchus or lung Mixed action and resting tremor Pain in throat Personal history of nicotine dependence Pigmented skin lesion suspicious for malignant neoplasm Skin neoplasm malignant Syncope and collapse Surgical History Surgical History History of gastrostomy, has currently Family History Family History Father Family history of malignant neoplasm Sibling Family history of malignant neoplasm Social History Social History Smoking packs per day: 2 Smoking cigarettes per day: 40.0 Years smoked: 45 Smoking pack-years: 90.00 Smoking status: Former smoker Tobacco type: cigarettes Second hand tobacco smoke exposure: No Smoking end date: 09/15/13 Alcohol intake: former Alcohol use details: SOCIAL DRINKER IN THE PAST Substance use: never Substance use type: does not use Living arrangements: alone Gender identity (if verbalized by the patient): Female Spiritual care concerns: No Meds Home Medications and Allergies Home Medications Medication Instructions Recorded Confirmed Type ondansetron HCl [Zofran] 4 mg PO Q6H PRN #20 tablet 01/19/21 09/14/21 Rx amoxicillin 500 mg tablet 500 mg PO .COMPLEX #8 tablet 02/10/21 09/13/21 Rx atorvastatin 20 mg tablet 20 mg PO DAILY #90 tablet 03/13/21 09/14/21 Rx ferrous sulfate 325 mg PO DAILY 03/31/21 09/14/21 History levothyroxine 75 mcg tablet 75 mcg PO DAILY #90 tablet 08/07/21 09/14/21 Rx gabapentin 100 mg capsule 200 mg PO TID #270 cap 08/22/21 09/14/21 Rx cyanocobalamin (vitamin B-12) 1 cap DAILY 09/07/21 09/14/21 History Allergies Allergy/AdvReac Type Severity Reaction Status Date / Time Sulfa (Sulfonamide Allergy Intermediate Hives Verified 09/14/21 11:52 Antibiotics) Vital Signs Vital Signs - 24 hr 09/14/21 11:45 Temperature 36.6 C Pulse Rate 86 Respiratory Rate 16 Blood Pressure 153/81 H Pulse Oximetry 93 Exam Const: General: cooperative, comfortable, no acute distress and ill appearing Nutritional Appearance: cachectic Orientation/consciousness: patient oriented x3 Limitations: no limitations HENMT: Head: normal to inspection, normocephalic and atraumatic Neck: Neck: normal visual inspection, full ROM and no lymphadenopathy Chest: Chest palpation & inspection: normal inspection of the chest Other: R SCV VAD - C/D/I Resp: Effort & Inspection: normal respiratory effort Auscultation: clear to auscultation bilaterally Cardio: Rate: regular rate Rhythm: regular rhythm Assessment and Plan Assessment and plan (1) Head and neck cancer: Code(s): C76.0 - Malignant neoplasm of head, face and neck Status: Acute Assessment and Plan: will remove previous R SCV VAD and replace
[2021-09-14] MEDS: LACTATED RINGERS 1,000 ML 30 ML IV CONT (12:03)
[2021-09-14] MEDS: KETOROLAC 15 MG/ML VIAL (*BKC) IV PUSH (12:08)
--- NOTE | 2021-09-14 14:03 | WPDHPUPDATE1 ---
History and Physical Update Update Date/Time: 09/14/21 14:03 History and Physical has been reviewed, including an updated exam of the patient. There are NO changes in the patient's condition. Risks, benefits, and alternatives have been discussed and questions answered. Patient agrees to proceed with procedure.
[2021-09-14] MEDS: ceFAZolin 2 GM/D5W 50 ML 2 GM/50 ML BAG IVPB (14:08)
[2021-09-14] MEDS: HEPARIN SODIUM, PORCINE 10,000 UNITS/10 ML VIAL 10000 UNITS IV PUSH (14:44)
[2021-09-14] MEDS: HEPARIN SODIUM 5,000 UNITS/ML VIAL 5000 UNITS IRRIGATION (14:45)
--- NOTE | 2021-09-14 14:55 | W.PM.PROC2 ---
Procedure Note - Detailed Date of Procedure 09/14/21 Pre-op Diagnosis metastatic head and neck cancer, malfunction of right subclavian VAD Post-op Diagnosis Same Procedure Performed Removal malfunctioning right subclavian venous access device, placement of right internal jugular venous access device under both ultrasound and fluoroscopic guidance Surgeon Cynthia Jordan MD Anesthesia MAC and Local Indications 76-year-old female with malfunctioning right subclavian venous access device needing new access for continued chemotherapy Findings intact right subclavian venous access device with noted pinching of the catheter near the level of the clavicle, 1st stick right IJ via ultrasound guidance Description of Procedure Patient was brought into the operating room and placed in the supine position. After adequate induction of mac anesthesia, the patient was prepped and draped in normal sterile fashion. Time-out was then done to verify the patient's identity, as well as the procedure being performed. I began by making a small incision in the right chest and gained access to the previously placed right subclavian venous access device. I was then able to dissect out the reservoir and removed it from the previously made pocket. Once done, I was able to remove the catheter in full. We did hold pressure at the level of the right subclavian vein for approximately 5 minutes and hemostasis was noted. Using the ultrasound, I then gained access into the right internal jugular vein with an 18 gauge needle. Once access was gained, I placed the guidewire in the vein and confirmed proper positioning. I then locally anesthetized the area in the right chest. I then proceeded to tunnel the catheter from the chest to the right neck insertion site. Of note, the blue tip of the catheter was detached during the tunneling. I then placed a dilating sheath over the guidewire into the right internal jugular vein via sterile Seldinger technique. This was once again done and confirmed via fluoroscopic guidance. I then removed the dilator and the guidewire, now just leaving the sheath in the vein. I then fed the previously flushed catheter into the right internal jugular vein under fluoroscopic guidance. At approximately 20 cm, the catheter was noted to be near the atrial caval junction. I then peeled away the sheath, now just leaving the catheter in the vein. I then was able to easily draw and flush from the catheter. The catheter was cut to fit and attached to the port itself. The port was placed into the previously made subcutaneous pocket and sutured in with 0 Ethibond suture. Final fluoroscopic view showed the termination of the catheter at the atrial caval junction with a nice smooth curvature back to the port itself. I was able to gain access to the port with a Shaw needle and was able to easily draw and flush from the port. I then flushed 4 cc of a final heparin flush into the port. The incision was closed with 3 0 Vicryl suture in the subcutaneous tissue and the skin was closed with 4 O Monocryl subcuticular suture. Dermabond was then placed on wound. The patient tolerated the procedure well and will be sent to the recovery room in stable condition. Implants RIJ VAD Estimated Blood Loss 10 Pathology None sent Complications No immediate complications Condition Stable Disposition PACU
[2021-09-14 14:57] VITALS: BP 140/73; PULSE 71; RESP 16; O2SAT 98
[2021-09-14 15:25] VITALS: BP 98/57; PULSE 68; RESP 16; O2SAT 97
--- NOTE | 2021-09-14 15:35 | SUR.PHASEII ---
1515 PORTABLE CXR DONE.
[2021-09-14 15:55] VITALS: BP 132/71; PULSE 75; RESP 16
--- NOTE | 2021-09-14 16:25 | SUR.PHASEII ---
DR. MAGAÑA CALLED RE: CXR; STATED CXR OKAY. NOTIFIED SKIN TORN OFF RIGHT FOREARM WHEN REMOVING TAPE; ORDERED BACITRACIN OINTMENT AND NON-STICK DRESSING.
[2021-09-14] MEDS: BACITRACIN OINTMENT 15 GM TUBE 1 APPLIC TOPICAL (16:28)
== END 2021-09-14 16:41 | disposition home or self-care (01) ==
PROVIDERS: PCP Internal Medicine; Visit Provider Surgery
PROC: (CPT 36582; principal; 2021-09-14 13:30)
DX: T82.594A Other mechanical complication of infusion catheter, initial encounter (principal); C76.0 Malignant neoplasm of head, face and neck; E78.5 Hyperlipidemia, unspecified; Z87.891 Personal history of nicotine dependence; R64 Cachexia; Z68.1 Body mass index [BMI] 19.9 or less, adult; Y83.8 Other surgical procedures as the cause of abnormal reaction of the patient, or of later complication, without mention of misadventure at the time of the procedure
CPT/HCPCS: 36582; 77001; A9270; C1788; J0690; J1644; J1885; J2250; J2370; J2704; J3010; J7030; J7120

== ENCOUNTER 2021-11-06 09:11 | Outpatient (CLI) | payer MEDICARE, SELFPAY ==
--- NOTE | ~2021-11-06 | CT_ITS ---
EXAMINATION: CT chest abdomen pelvis w con DATE: 11/06/2021 10:05 INDICATION: Head and neck cancer TECHNIQUE: Computed tomography (CT) of the chest, abdomen, and pelvis was performed with 75 mL Omnipa que-300 intravenous contrast. Automated exposure control and iterative reconstruction technique were employed. The dose-length product was 266.55 mGy-cm. COMPARISON: 07/11/2021 FINDINGS: CHEST CT: Small left hydropneumothorax with layering fluid component and very small gas component along the ape x and superior mediastinum. Biapical pleural-parenchymal scarring. There is been interval coalescence of a masslike region of consolidation at the left apex which is decreased slightly in size to 4.2 x 3.6 cm, previously 4.8 x 3.7 cm and now more uniformly soft tissue density with opacification of the prior small residual lucent airspaces within the mass. Increased size and density of a couple regions of consolidation with internal air bronchograms at the posterior segment of the left upper lobe and adjacent superior segment of the left lower lobe. The former demonstrates a somewhat lenticular confi guration on axial images measuring 3.8 x 1.9 cm and the latter the more triangular configuration kelly uring 4.0 x 3.7 cm. Minimal change in a 3.0 x 2.2 cm region of consolidation with lobular margins at the inferior lingula. Bronchiectasis and distal wedge-shaped region of consolidation measuring 4.0 x 3.1 cm in the right middle lobe which appears to include the site of a prior round more masslike 1.9 x 1.5 cm opacity. There are new regions of tree-in-bud opacities in the right middle lobe, basilar ri ght lower lobe and to a lesser degree in the basilar left lower lobe and posterior segment of the rig ht upper lobe, all consistent with endobronchial spread of disease/pneumonia. Calcified right lower l obe nodule and calcified right hilar and mediastinal lymph nodes consistent with old granulomatous di sease. No pathologically enlarged thoracic lymphadenopathy. Heart size is normal. Atherosclerotic cor onary artery calcification. Normal caliber thoracic aorta with no dissection. Right internal jugular central venous port catheter with distal tip at the superior cavoatrial junction. Postoperative white e of prior thyroidectomy. Multiple healing rib fractures versus site of thoracotomy involving the lat eral left sixth-eighth ribs. ABDOMEN/PELVIS CT: A few hepatic and splenic calcifications consistent with old granulomatous disease. Gallbladder, panc reas and bilateral adrenal glands are normal. Bilateral renal cysts the largest on the right measurin g 1.4 cm. There is also bilateral nonobstructing nephrolithiasis with 2-3 mm stone in an inferior zac yx of the right kidney and 2 mm stone in a middle calyx of the left kidney. Bowels are unremarkable w ith no obstruction. Appendix is not visualized with region of the tip the cecum obscured by metallic streak artifact related to a bipolar type right hip hemiarthroplasty. Bladder is unremarkable. Calcif ication at the uterine fundus likely small degenerated uterine fibroid. There is calcified atheroscle rosis of the normal caliber abdominal aorta and many of the other arteries. Chronic large sclerotic b one island at the right iliac wing which is been present since radiograph dated 11/11/2008. IMPRESSION: 1. Small left hydropneumothorax. Dr. Garcia discussed these findings with Dr. Pat at 2:00 PM. 2. Multiple pulmonary masses/regions of consolidation likely related to metastatic disease, the large st in the left upper lobe with additional lesions at the lingula, right middle lobe and superior segm ent of the left lower lobe. These are either unchanged or increased in size. The appearance and patte rn of increased in size of several of the lesions however is more suggestive of surrounding lung dise ase either atelectasis or pneumonia rather than definitive increase in size of the underlyi
== END 2021-11-06 09:12 | disposition home or self-care (01) ==
PROVIDERS: PCP Internal Medicine; Visit Provider Internal Medicine Hematology & Oncology
DX: C76.0 Malignant neoplasm of head, face and neck (principal); D25.9 Leiomyoma of uterus, unspecified; N20.0 Calculus of kidney; R91.8 Other nonspecific abnormal finding of lung field
CPT/HCPCS: 71260; 74177; Q9967

== ENCOUNTER 2022-01-24 12:47 | Outpatient (CLI) | payer MEDICARE, SELFPAY ==
--- NOTE | ~2022-01-24 | CT_ITS ---
EXAMINATION: CT chest abdomen pelvis w con DATE: 01/24/2022 13:38 INDICATION: Head and neck cancer TECHNIQUE: Computed tomography (CT) of the chest, abdomen, and pelvis was performed with 85 CC Omnipa que 350 intravenous contrast. Automated exposure control and iterative reconstruction technique were employed. Exam dose: 255.59 mGy-cm total exam DLP. COMPARISON: 11/06/2021 CT chest abdomen pelvis FINDINGS: CHEST CT: Right Port-A-Cath catheter terminating near the superior cavoatrial junction. Again noted is a large soft tissue mass lesion in the medial left apical region, measuring up to 4 x 4.6 cm approximate maximal dimension. Persistent prominent soft tissue mass densities are noted at th e posterolateral aspect of the left hilum involving superior segment left lower lobe and posterior se gment of left upper lobe in addition to prominent irregular soft tissue mass density in the lateral l eft lung base bridging of the lingula and the left lower lobe. These masses appear mildly increased i n size since 11/06/2021. Right apical irregular soft tissue mass density is again noted. Stable approximately 3.5 mm nodular d ensity of the anterior segment of the right upper lobe. Chronic atelectasis, consolidation and/or mas s lesion at the medial segment of the middle lobe. There are multiple left pleural metastatic soft tissue masses, the largest measuring approximately 1. 6 cm depth and 2.8 cm width, with invasion of the adjacent posterior left eighth rib. Additional 8.9 x 18.8 cm, 8.4 x 15 mm, 3.2 x 6.2 mm and smaller pleural metastases are noted on Emphysematous changes of the lungs. The left. There is mild to moderate left pleural effusion. Patchy tree-in-bud infiltrates of middle and right lower lobes, improved considerably since 2 ABDOMEN/PELVIS CT: The liver, gallbladder, bile ducts, spleen, pancreas and pancreatic duct are unremarkable. Normal morphology of the adrenal glands. 1.4 cm right renal cyst. Small nonobstructing lower pole rig ht renal calculus. Small nonobstructing mid left renal calculus. There is atherosclerotic calcification of the abdominal aorta and iliac and femoral arteries. No abdo sheela aortic aneurysm. No bowel obstruction or intraperitoneal free air. Prominent bilateral adnexal veins. There is considerable streak artifact from right total hip arthroplasty. Large osteosclerotic lesion of the right iliac crest. Smaller osteosclerotic lesion of the right iliu m. Healing fracture of lateral aspect of left seventh and eighth ribs. IMPRESSION: New and enlarged left pleural metastases, with some associated bone destruction, increas ed left pleural effusion and increased size of left lung masses since 11/06/2021 Improvement of patchy tree-in-bud infiltrates of middle and right lower lobe since 11/06/2021 Emphysema Reviewed, dictated and finalized at Location [facility]. Reviewed, dictated and finalized at location B. IMPRESSION: New and enlarged left pleural metastases, with some associated bon e destruction, increased left pleural effusion and increased size of left lung masses since 11/06/2021 Improvement of patchy tree-in-bud infiltrates of middle and right lower lobe si nce 11/06/2021 Emphysema
== END 2022-01-24 12:48 | disposition home or self-care (01) ==
PROVIDERS: PCP Family Medicine; Visit Provider Internal Medicine Hematology & Oncology
DX: C76.0 Malignant neoplasm of head, face and neck (principal); J43.9 Emphysema, unspecified
CPT/HCPCS: 71260; 74177; Q9967

== ENCOUNTER 2022-02-01 11:12 | Observation (INO) | payer MEDICARE, SELFPAY ==
[2022-02-01] VITALS (12 sets, daily range): BP systolic 104–175; BP diastolic 70–159; PULSE 87–121; RESP 15–25; TEMP 36.4–37.3; O2SAT 67–100
--- NOTE | ~2022-02-01 | CT_ITS ---
EXAMINATION: CTA chest PE protocol DATE: 02/02/2022 09:04 CDT INDICATION: Tachycardia. Shortness of breath. History of head and neck cancer. TECHNIQUE: Computed tomographic angiography (CTA) of the chest was performed with 100 mL Omnipaque-35 0 intravenous contrast. The dose-length product was 142.41 mGy-cm. Maximum intensity projection 3D-re constructions of the aorta and other arteries were constructed by the technologist on a separate work station. Automated exposure control and iterative reconstruction technique were employed. COMPARISON: CT dated 01/24/2022. FINDINGS: Study is technically adequate without evidence for pulmonary embolism. Small left pleural e ffusion. There is anterior mediastinal mass measuring 2.9 x 2 cm, suspicious for pathologic lymph node metasta ses. Cardiomegaly. Soft tissue at the left apex measures 4.8 x 4.3 x 3 cm, concerning for malignancy, possible metastatic versus primary. There is consolidation in the left midlung extending to the hilu m, suspicious for pneumonia. There are additional patchy groundglass opacities in the right middle lo be and lingula. There is irregular soft tissue mass in the left lower lung extending to the pleural s urface. Patient is status post partial left pneumonectomy. No pneumothorax. There is sclerosis in the destruction of multiple left ribs, consistent with pathologic fractures including the sixth, seventh and eighth rib. IMPRESSION: 1. No large central pulmonary embolism. 2: Multiple left-sided masses, largest at the left apex measuring up to 4.8 cm, suspicious for metast atic disease. 3: Anterior mediastinal mass measuring 2.9 cm, suspicious for metastatic lymphadenopathy. 4: Abnormal left sixth, seventh and eighth ribs which are sclerotic and fractured, likely pathologic fracture secondary to metastatic disease. 5: Small left pleural effusion. Reviewed, dictated and finalized at location B. IMPRESSION: 1. No large central pulmonary embolism. 2: Multiple left-sided masses, largest at the left apex measuring up to 4.8 cm, suspicious for metastatic disease. 3: Anterior mediastinal mass measuring 2.9 cm, suspicious for metastatic lympha denopathy. 4: Abnormal left sixth, seventh and eighth ribs which are sclerotic and fractur ed, likely pathologic fracture secondary to metastatic disease. 5: Small left pleural effusion.
--- NOTE | ~2022-02-01 | XR_ITS ---
[id number] 02/01/2022 15:18 Indication: Postthoracentesis. Left pleural effusion. Procedure: AP view of the chest Comparison: 02/01/2022 Findings: Decreased size of left pleural effusion postthoracentesis. There are healing left rib fract ures. There are masses in the left mid lung and apex, suspicious for malignancy. Port catheter tip in the SVC. No pneumothorax identified. Impression: 1: No pneumothorax identified post thoracentesis. 2: Left lung masses, suspicious for malignancy. 3: Healing left rib fractures, possibly pathologic Reviewed, dictated and finalized at location B. Impression: 1: No pneumothorax identified post thoracentesis. 2: Left lung masses, suspicious for malignancy. 3: Healing left rib fractures, possibly pathologic
--- NOTE | ~2022-02-01 | US_ITS ---
EXAMINATION: US thoracentesis DATE: 02/01/2022 15:39 INDICATION: Left pleural effusion TECHNIQUE: The procedure and its risks and benefits were discussed with the patient. Potential risks discussed included bleeding, infection, and pneumothorax. The patient understood the risks and agreed to proceed. The skin was prepped and draped in sterile fashion. 1% lidocaine was used for local anes thesia. Under ultrasound guidance, a 5 Fr catheter with trochar was advanced into the left pleural ef fusion. Fluid was aspirated. The catheter was removed, and a dressing was applied. There were no imme diate complications. FINDINGS: Ultrasound images demonstrate a small to moderate sized left pleural effusion and the catheter within the fluid. IMPRESSION: 1. Successful ultrasound-guided thoracentesis yielding 900 mL of reddish-brown fluid. Reviewed, dictated and finalized at location A.
--- NOTE | ~2022-02-01 | XR_ITS ---
XR chest 2V DATE: 02/01/2022 13:11 INDICATION: Shortness of breath, fluid in the lungs. TECHNIQUE: AP and lateral views COMPARISON: 01/24/2022 CT chest abdomen pelvis FINDINGS: Prominent left apical soft tissue mass and left perihilar mass density are again noted. The re is opacification of the lower left hemithorax due to a combination of pleural effusion and infiltr ate and/atelectasis. Additionally, there was a soft tissue mass in the lingular area demonstrated on 01/24/2022 CT thorax examination. Otherwise there is hyperinflation of lungs consistent with COPD. There is right apical capping. Slight blunting of the right costophrenic angle may indicate minimal r ight pleural effusion. Probable cardiac megaly. Aortic arch calcification. Multiple left rib fractures Diffuse osteopenia. Surgical clips overlie the lower cervical area bilaterally and mid left cervical region. Right Port-A-Cath catheter with tip overlying lower aspect of superior vena cava. IMPRESSION: Left apical, perihilar and lower lung mass densities COPD Cardiomegaly Moderate left pleural effusion, left lower lung infiltrate and/atelectasis Left rib fractures Reviewed, dictated and finalized at location A.
--- NOTE | 2022-02-01 11:48 | ECG_ITS ---
Measurements Intervals [place] Rate: 120 P: [place]: 0 QRS: -47 QRSD: 86 T: 77 QT: 327 QTc: 462 Interpretive Statements ATRIAL FIBRILLATION WITH RAPID VENTRICULAR RESPONSE LOW QRS VOLTAGE IN PRECORDIAL LEADS [QRS DEFLECTION < 1.0 mV IN CHEST LEADS] POSSIBLE RIGHT VENTRICULAR CONDUCTION DELAY [RSR (QR) IN V1/V2] LEFT ANTERIOR FASCICULAR BLOCK [QRS AXIS <= -45, QR IN I, RS IN II] SEPTAL MYOCARDIAL INFARCTION , OF INDETERMINATE AGE [40+ ms Q WAVE IN V1/V2] ABNORMAL ECG COMPARED TO ECG 08/30/2021 11:23:25 ATRIAL FIBRILLATION NOW PRESENT LEFT ANTERIOR FASCICULAR BLOCK NOW PRESENT MYOCARDIAL INFARCT FINDING NOW PRESENT Electronically Signed On 02-01-2022 13:56:38 CDT by Tyson Welch M.D.
[2022-02-01 12:42] LABS: Basophils Percent Auto 0.4 % (0.2-1.2); Hematocrit 33.2 % (37.0-47.0); Hemoglobin 10.6 g/dL (12.0-15.0); Immature Granulocyte Absolute 0.02 K/mm3 (0.00-0.031); Immature Granulocyte Percent A 0.3 % (0-0.5); Lymphocytes Absolute Auto 0.58 K/mm3 (0.9-3.2); Mean Corpuscular HGB Conc 31.9 g/dl (32-36); Mean Corpuscular Volume 87.6 fl (80-100); Monocytes Absolute Auto 0.8 K/mm3 (0.1-0.6); Monocytes Percent Auto 11.7 % (2.6-8.5); Neutrophils Absolute Auto 5.7 K/mm3 (1.3-6.7); Neutrophils Percent Auto 79.6 % (45.5-73.1); Platelet Count Result 319 k/mm3 (150-375); Red Blood Count 3.79 M/mm3 (4.2-5.4); Red Cell Distribution Width 14.7 % (11.5-14.5); White Blood Count 7.2 K/mm3 (4.5-10.0)
[2022-02-01 12:54] LABS: Alanine Aminotransferase 12 U/L (6-35); Albumin Level 3.6 g/dL (3.5-5.1); Alkaline Phosphatase 97 U/L (38-126); Anion Gap 6 mmol/L (8-16); Aspartate Amino Transferase 25 U/L (14-36); Bilirubin,Total 0.3 mg/dL (0.2-1.3); Blood Urea Nitrogen 20 mg/dL (7-17); Calcium 8.7 mg/dL (8.4-10.2); Carbon Dioxide 33 mmol/L (22-30); Chloride 97 mmol/L (98-107); Estimated CRCL calculation 49 ml/min; Estimated Glomerular Filt Rate > 60; Glucose 129 mg/dL (65-110); Potassium 3.5 mmol/L (3.4-5.0); Sodium 136 mmol/L (137-145)
[2022-02-01 14:14] LABS: INR 1.1; Prothrombin Time 13.9 Seconds (11.1-14.7)
[2022-02-01 14:15] LABS: Partial Thromboplastin Time 32.3 SECONDS (22.3-36.8)
--- NOTE | 2022-02-01 14:25 | ED.SOB ---
HPI - SOB/Dyspnea General Chief Complaint: Shortness of Breath/Dyspnea Stated Complaint: need my lung drained Time Seen by Provider: 02/01/22 12:10 Source: patient and family Mode of arrival: wheelchair Limitations: no limitations History of Present Illness HPI Narrative: 76-year-old with a history of lung CVA presently under the treatment here with complaints of shortness of breath. Patient's daughter who is at bedside reports that she had a CT scan that few days ago which showed large effusion and since this morning she has been having more short of breath and high heart rate. Patient presently denies any fever or chills. No unusual cough. No history of chest pain or abdominal pain. MD elicited complaint: shortness of breath Pertinent past history: other (Lung cancer) Onset (ago): day(s) (1) Timing: constant Severity: moderate Exacerbating factors: lying flat Relieving factors: oxygen and upright position Known history of: other (Lung ca) Associated symptoms: denies other symptoms Treatment prior to arrival: oxygen Related Data Home oxygen amount: none Allergies Allergy/AdvReac Type Severity Reaction Status Date / Time Fish Containing Products Allergy Intermediate Unknown Verified 02/01/22 12:31 Sulfa (Sulfonamide Allergy Intermediate Hives Verified 02/01/22 12:31 Antibiotics) carbidopa [From Sinemet] AdvReac Intermediate Abdominal Verified 02/01/22 12:31 Pain levodopa [From Sinemet] AdvReac Intermediate Abdominal Verified 02/01/22 12:31 Pain 3 M MICROPORE TAPE AdvReac Intermediate Other Uncoded 02/01/22 12:31 Review of Systems Review of Systems: All systems reviewed & are unremarkable except as noted in HPI and below Constitutional: Constitutional: Reports no additional constitutional complaints Eyes: Eyes: Reports no additional eye complaints ENT: Reports system reviewed and no additional complaints, except as documented Cardiovascular: Cardiovascular: Reports no additional cardiovascular complaints Respiratory: Respiratory: Reports as per HPI Gastrointestinal: Gastrointestinal: Reports no additional gastrointestinal complaints Genitourinary: Genitourinary: Reports no additional female genitourinary complaints Musculoskeletal: Musculoskeletal: Reports no additional musculoskeletal complaints Integumentary/Breasts: Skin/Breast: Reports system reviewed and no additional complaints, except as docu PMFSH Past Medical History Medical History Bigeminal rhythm Dyslipidemia Head and neck cancer Hypothyroidism (acquired) Malignant neoplasm of middle lobe, bronchus or lung Mixed action and resting tremor Pain in throat Personal history of nicotine dependence Pigmented skin lesion suspicious for malignant neoplasm Skin neoplasm malignant Syncope and collapse Surgical History Surgical History History of gastrostomy, has currently Family History Family History Father Family history of malignant neoplasm Sibling Family history of malignant neoplasm Social History Social History Smoking packs per day: 2 Smoking cigarettes per day: 40.0 Years smoked: 45 Smoking pack-years: 90.00 Smoking status: Former smoker Tobacco type: cigarettes Second hand tobacco smoke exposure: No Smoking end date: 09/15/13 Alcohol intake: former Alcohol use details: SOCIAL DRINKER IN THE PAST Substance use: never Substance use type: does not use Gender identity (if verbalized by the patient): Female Spiritual care concerns: No Exam Narrative: GENERAL: Well-appearing, thin , and in no acute distress. HEAD: Normocephalic, atraumatic. EYES: PERRLA and EOMI. NECK: Supple. CHEST: decreased breath sound on the left has aport on the right side of the chest HEART: Regular rate and
--- NOTE | 2022-02-01 15:17 | PC.NURSE ---
mobile device engineer reported that pt is done with thoracentesis. They removed approx 850 ml off
--- NOTE | 2022-02-01 15:57 | ADMGEN ---
This patient, Macey Park, was admitted to Medical Room 341-01 @ 1530. Patient/family oriented to hospital policies and general routines including ID bracelet, bed and alarms, visiting hours, pain management, procedures, bathroom and other care routines, personal items, smoking policy, room service/diet, and visiting hours. Information on how to activate the Rapid Response Team has been discussed. Patient/Family are encouraged to report perceived risks to care and to ask questions if they do not understand what they are told or what they should do.
[2022-02-01] MEDS: CENTRAL LINE FLUSH 10 ML IV PUSH (20:27)
--- NOTE | 2022-02-01 21:30 | PM.IMHP ---
H&P: HPI History of Present Illness Date/Time: 02/01/22 21:30 Chief Complaint: Shortness of breath. 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 She was found to have metastatic disease to the lung and she was started on Erbitux in August 2021 though that has been on hold since November 29 due to poor performance status and side effects. CT of the chest, abdomen, and pelvis done last week revealed new and enlarging left pleural metastases with increasing left pleural effusion, increasing left lung masses, and associated bone destruction. She had a follow-up telemedicine visit up with Oncology today at which time she mentioned feeling feeling lightheaded and short of breath. She has a pulse oximeter at home at which time her SpO2 was reportedly in the 70s and her heart rate was 130. She was directed to the emergency department where a chest x-ray showed a moderate left pleural effusion and she is now status post thoracentesis with some improvement in her shortness of breath. With further questioning she mentions that on Saturday she had sudden onset of a ?bandlike? discomfort around her lower ribcage, a bit more on the left side. It has been pretty constant though not significant enough to require analgesics. It seems to be worse with cough and deep inspiration. She has not noticed any lower extremity edema or calf pain. She also denies history of venous thromboembolism. She has not had exertional chest pain. Review of Systems Review of Systems: Twelve systems were reviewed. No fever, chills, or sweats. No cold or flu symptoms. Her appetite has been okay though she is not able to eat a whole lot as she eats very slowly due to issues stemming from her previous oral surgery. Not long ago she was diagnosed with Parkinson's though she has not been able to tolerate Sinemet. She has not had any recent coughing or choking episodes and denies concerns for dysphagia. Except as documented, all other systems were reviewed and are negative. 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 She had radiation in January 2019 and more recently she was found to have metastatic disease to the lung and she was started on palliative treatment in August 2021 though she has not been able to tolerate that due to poor performance and side effects. Hypothyroidism (acquired) Mixed action and resting tremor Surgical History Surgical History (Updated 02/02/22 @ 00:12 by Misa Blunt PA-C) History of bilateral cataract extraction History of gastrostomy, has currently History of partial thyroidectomy History of radical neck dissection (11/2015) Left partial pharyngectomy and left neck dissection. History of tonsillectomy History of total right hip arthroplasty (04/2020) Repair of right hip fracture. Family History Family History (Updated 02/01/22 @ 16:01 by Jana Lynn RN) Father Family history of malignant neoplasm Diabetes mellitus Sibling Family history of malignant neoplasm Mother No problems noted. Social History Social History (Updated 02/02/22 @ 00:14 by Misa Blunt PA-C) Social History: Surrogate medical decision maker: Va Simon or Dasha Thea, daughters. Code status: Full code. Smoking packs per day: 2 Smoking cigarettes per day: 40.0 Years smoked: 45 Smoking pack-years: 90.00 Smoking status: Former smoker Tobacco type: cigarettes Second hand tobacco smoke exposure:
--- NOTE | 2022-02-02 00:10 | PC.NURSE ---
PT TO CT VIA WHEELCHAIR AT THIS TIME CONSENT WITH TRANSPORTER.
--- NOTE | 2022-02-02 00:55 | PC.NURSE ---
PT RETURN TO FLOOR VIA WHEELCHAIR. CURRENTLY SITTING UP AT BEDSIDE NOC SNACK GIVEN. PORT FLUSHED 10ML X3.
[2022-02-02 06:00] VITALS: BP 133/79; PULSE 88; RESP 20; TEMP 37.1; O2SAT 100
[2022-02-02 06:58] VITALS: PULSE 88
[2022-02-02] MEDS: CENTRAL LINE FLUSH 10 ML IV PUSH ×2 (06:59→14:05)
[2022-02-02] MEDS: LEVOTHYROXINE SODIUM 75 MCG TABLET PO (07:00)
[2022-02-02 08:00] VITALS: PULSE 110
[2022-02-02] MEDS: ATORVASTATIN 20 MG TABLET PO (09:00)
[2022-02-02] MEDS: GABAPENTIN 100 MG CAPSULE 200 MG PO ×2 (09:00→12:24)
--- NOTE | 2022-02-02 10:01 | PM.DS ---
DS: Admitting Diagnosis Discharge Date 02/02/2022 Admitting Diagnosis acute hypoxic respiratory failure due to malignant left pleural effusion DS: Discharge Diagnosis Discharge Diagnosis (1) Hypoxia: Code(s): R09.02 - Hypoxemia Status: Acute (2) Pleural effusion on left: Code(s): J90 - Pleural effusion, not elsewhere classified Status: Acute (3) Metastatic squamous cell carcinoma: Status: Acute (4) Hypokalemia: Code(s): E87.6 - Hypokalemia Status: Acute DS: Summary Hospital Course Hospital Course: [facility] [address] [place] [id number] Scan Report Signed Patient: Macey Park A 76-year-old female presented with chest discomfort and dyspnea. 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 Imaging revealed moderate left pleural effusion. This was drained under ultrasound guidance. CTA of the chest was negative for PE but did show pulmonary and pleural metastases with bone erosion, as well as lymph node metastases and an anterior mediastinal mass. she did have mild hypokalemia it was addressed with oral potassium chloride presumably on the basis of poor intake. Her hypoxia was intermittent at admission and resolved after the thoracentesis. She wished to follow up with Oncology to discuss possible palliative chemotherapy and also to discuss her option of comfort care with hospice after discharge home. She did not wish to stay any longer in the hospital due to having a pet dog at home. Her oncologist, Dr. Pat, was out of town during this admission. EXAMINATION: CTA chest PE protocol DATE: 02/02/2022 09:04 CDT INDICATION: Tachycardia. Shortness of breath. History of head and neck cancer. TECHNIQUE: Computed tomographic angiography (CTA) of the chest was performed with 100 mL Omnipaque-350 intravenous contrast. The dose-length product was 142.41 mGy-cm. Maximum intensity projection 3D-reconstructions of the aorta and other arteries were constructed by the technologist on a separate workstation. Automated exposure control and iterative reconstruction technique were employed. COMPARISON: CT dated 01/24/2022. FINDINGS: Study is technically adequate without evidence for pulmonary embolism. Small left pleural effusion. There is anterior mediastinal mass measuring 2.9 x 2 cm, suspicious for pathologic lymph node metastases. Cardiomegaly. Soft tissue at the left apex measures 4.8 x 4.3 x 3 cm, concerning for malignancy, possible metastatic versus primary. There is consolidation in the left midlung extending to the hilum, suspicious for pneumonia. There are additional patchy groundglass opacities in the right middle lobe and lingula. There is irregular soft tissue mass in the left lower lung extending to the pleural surface. Patient is status post partial left pneumonectomy. No pneumothorax. There is sclerosis in the destruction of multiple left ribs, consistent with pathologic fractures including the sixth, seventh and eighth rib. IMPRESSION: 1. No large central pulmonary embolism. 2: Multiple left-sided masses, largest at the left apex measuring up to 4.8 cm, suspicious for metastatic disease. 3: Anterior mediastinal mass measuring 2.9 cm, suspicious for metastatic lymphadenopathy. 4: Abnormal left sixth, seventh and eighth ribs which are sclerotic and fractured, likely pathologic fracture secondary to metastatic disease. 5: Small left pleural effusion. Time Spent with Patient Time attestation: Total time spent providing and/or coordinating discharge services: DS: Data Data Completed and Pending Labs on day of discharge: Labs from last 24 hours 02/01/22 02/01/22 02/01/22 12:29 12:29 12:29 WBC 7.2 RBC 3.79 L Hgb 10.6 L Hct 33.2 L MCV 87.6 MCH 28.0 MCHC 31.9 L RDW 14.7 H Plt Count 319 MPV 11.0 H Immature Gran % (Auto) 0.3 Neut % (Auto) 79.6 H Lymph % (Auto) 8.0 L
[2022-02-02 11:19] LABS: Basophils Percent Auto 0.5 % (0.2-1.2); Eosinophils Percent Auto 0.2 % (0-4.4); Hematocrit 32.8 % (37.0-47.0); Hemoglobin 10.4 g/dL (12.0-15.0); Immature Granulocyte Absolute 0.02 K/mm3 (0.00-0.031); Immature Granulocyte Percent A 0.3 % (0-0.5); Lymphocytes Absolute Auto 0.58 K/mm3 (0.9-3.2); Lymphocytes Percent Auto 9.7 % (18.3-44.2); Mean Corpuscular HGB Conc 31.7 g/dl (32-36); Mean Corpuscular Hemoglobin 27.3 pg (26-34); Mean Corpuscular Volume 86.1 fl (80-100); Mean Platelet Volume 10.7 fl (7.4-10.4); Monocytes Absolute Auto 0.7 K/mm3 (0.1-0.6); Monocytes Percent Auto 11.4 % (2.6-8.5); Neutrophils Absolute Auto 4.7 K/mm3 (1.3-6.7); Neutrophils Percent Auto 77.9 % (45.5-73.1); Platelet Count Result 322 k/mm3 (150-375); Red Blood Count 3.81 M/mm3 (4.2-5.4); Red Cell Distribution Width 14.5 % (11.5-14.5)
[2022-02-02 11:35] LABS: Alanine Aminotransferase 9 U/L (6-35); Albumin Level 3.2 g/dL (3.5-5.1); Alkaline Phosphatase 84 U/L (38-126); Anion Gap 7 mmol/L (8-16); Aspartate Amino Transferase 20 U/L (14-36); Bilirubin,Total 0.4 mg/dL (0.2-1.3); Blood Urea Nitrogen 12 mg/dL (7-17); Calcium 8.7 mg/dL (8.4-10.2); Carbon Dioxide 31 mmol/L (22-30); Chloride 95 mmol/L (98-107); Estimated CRCL calculation 60 ml/min; Estimated Glomerular Filt Rate > 60; Glucose 107 mg/dL (65-110); Potassium 3.2 mmol/L (3.4-5.0); Sodium 133 mmol/L (137-145)
[2022-02-02 11:57] VITALS: O2SAT 95
[2022-02-02 12:00] VITALS: PULSE 117
[2022-02-02 13:09] VITALS: BMI 14.1
[2022-02-02] MEDS: POTASSIUM CHLORIDE 20 MEQ PACKET (FOR LIQUID) 40 MEQ PO (14:01)
--- NOTE | 2022-02-03 12:06 | PC.NURSE ---
Macey Park called at 1205 on 02/03/22 to ask why an antibiotic form was sent with her d/c paperwork yesterday. She was informed that it was sent in all d/c packets. She also asked whether she had received a vaccine while she was here, and was informed she did not.
== END 2022-02-02 14:41 | disposition home or self-care (01) ==
LOC: ANHED 14:38 → ANH3MED 15:26
PROVIDERS: Emergency Medicine; Admitting Provider Family Medicine; Emergency Provider Family Medicine; PCP Family Medicine; Visit Provider Internal Medicine
DX: R09.02 Hypoxemia (principal); J90 Pleural effusion, not elsewhere classified; C78.00 Secondary malignant neoplasm of unspecified lung; C78.2 Secondary malignant neoplasm of pleura; E87.6 Hypokalemia; R06.02 Shortness of breath; Z92.3 Personal history of irradiation; E78.5 Hyperlipidemia, unspecified; R25.1 Tremor, unspecified; E89.0 Postprocedural hypothyroidism; Z93.1 Gastrostomy status; Z90.89 Acquired absence of other organs; Z80.9 Family history of malignant neoplasm, unspecified; I51.7 Cardiomegaly; I48.91 Unspecified atrial fibrillation; I44.4 Left anterior fascicular block; J44.9 Chronic obstructive pulmonary disease, unspecified; Z87.891 Personal history of nicotine dependence; Z79.899 Other long term (current) drug therapy; Z85.818 Personal history of malignant neoplasm of other sites of lip, oral cavity, and pharynx
CPT/HCPCS: 32555; 36415; 71046; 71275; 80053; 85025; 85610; 85730; 93005; 99211; 99285; A9270; G0378; G0463; J1642; Q9967